=== PATIENT | female | born 1985 | race Caucasian/White ===

== ENCOUNTER → 2023-06-28 17:40 | Outpatient (REF) | payer OTHER, SELFPAY | LOC: RAD 17:40 | PROVIDERS: ATTENDING PHYSICIAN Obstetrics & Gynecology; FAMILY PHYSICIAN Family Medicine | DX: O36.80X0 Pregnancy with inconclusive fetal viability, not applicable or unspecified (principal) | CPT/HCPCS: 76801 ==

== ENCOUNTER → 2023-08-02 08:22 | Outpatient (REF) | payer BC, SELFPAY | LOC: PNTC 08:22 | PROVIDERS: ATTENDING PHYSICIAN Obstetrics & Gynecology | DX: O34.219 Maternal care for unspecified type scar from previous cesarean delivery (principal); O10.219 Pre-existing hypertensive chronic kidney disease complicating pregnancy, unspecified trimester; Z87.59 Personal history of other complications of pregnancy, childbirth and the puerperium | CPT/HCPCS: 76805; 93976 ==

== ENCOUNTER → 2023-08-29 06:45 | Outpatient (REF) | payer BC, SELFPAY | LOC: PNTC 06:45 | PROVIDERS: ATTENDING PHYSICIAN Obstetrics & Gynecology | DX: O09.529 Supervision of elderly multigravida, unspecified trimester (principal); O34.219 Maternal care for unspecified type scar from previous cesarean delivery | CPT/HCPCS: 76811 ==

== ENCOUNTER → 2023-09-27 06:56 | Outpatient (REF) | payer BC, SELFPAY | LOC: PNTC 06:56 | PROVIDERS: ATTENDING PHYSICIAN Obstetrics & Gynecology | DX: O09.529 Supervision of elderly multigravida, unspecified trimester (principal); O13.9 Gestational [pregnancy-induced] hypertension without significant proteinuria, unspecified trimester; Z87.59 Personal history of other complications of pregnancy, childbirth and the puerperium; O43.219 Placenta accreta, unspecified trimester | CPT/HCPCS: 76816; 93976 ==

== ENCOUNTER → 2023-10-25 06:58 | Outpatient (REF) | payer BC, SELFPAY | LOC: PNTC 06:58 | PROVIDERS: ATTENDING PHYSICIAN Obstetrics & Gynecology | DX: O09.529 Supervision of elderly multigravida, unspecified trimester (principal); O10.119 Pre-existing hypertensive heart disease complicating pregnancy, unspecified trimester; Z87.59 Personal history of other complications of pregnancy, childbirth and the puerperium; O43.219 Placenta accreta, unspecified trimester | CPT/HCPCS: 76816; 93976 ==

== ENCOUNTER → 2023-11-23 06:58 | Outpatient (REF) | payer BC, SELFPAY | LOC: PNTC 06:58 | PROVIDERS: ATTENDING PHYSICIAN Obstetrics & Gynecology | DX: O09.519 Supervision of elderly primigravida, unspecified trimester (principal); O10.119 Pre-existing hypertensive heart disease complicating pregnancy, unspecified trimester; O14.90 Unspecified pre-eclampsia, unspecified trimester | CPT/HCPCS: 59025; 76816 ==

== ENCOUNTER → 2023-12-06 07:03 | Outpatient (REF) | payer BC, SELFPAY | LOC: PNTC 07:03 | PROVIDERS: ATTENDING PHYSICIAN Obstetrics & Gynecology | DX: Z87.59 Personal history of other complications of pregnancy, childbirth and the puerperium (principal); O10.119 Pre-existing hypertensive heart disease complicating pregnancy, unspecified trimester; O34.219 Maternal care for unspecified type scar from previous cesarean delivery | CPT/HCPCS: 59025; 76815 ==

== ENCOUNTER → 2023-12-13 16:26 | Outpatient (REF) | payer BC, SELFPAY | LOC: PNTC 16:26 | PROVIDERS: ATTENDING PHYSICIAN Obstetrics & Gynecology | DX: O16.9 Unspecified maternal hypertension, unspecified trimester (principal); O34.219 Maternal care for unspecified type scar from previous cesarean delivery | CPT/HCPCS: 59025; 76815 ==

== ENCOUNTER → 2023-12-21 06:57 | Outpatient (REF) | payer BC, SELFPAY | LOC: PNTC 06:57 | PROVIDERS: ATTENDING PHYSICIAN Obstetrics & Gynecology | DX: O09.519 Supervision of elderly primigravida, unspecified trimester (principal); O10.119 Pre-existing hypertensive heart disease complicating pregnancy, unspecified trimester; Z87.59 Personal history of other complications of pregnancy, childbirth and the puerperium | CPT/HCPCS: 59025; 76816 ==

== ENCOUNTER → 2023-12-28 06:49 | Outpatient (REF) | payer BC, SELFPAY | LOC: PNTC 06:49 | PROVIDERS: ATTENDING PHYSICIAN Obstetrics & Gynecology | DX: O09.519 Supervision of elderly primigravida, unspecified trimester (principal); O10.119 Pre-existing hypertensive heart disease complicating pregnancy, unspecified trimester; Z87.59 Personal history of other complications of pregnancy, childbirth and the puerperium | CPT/HCPCS: 59025; 76815 ==

== ENCOUNTER 2024-01-05 08:04 | Inpatient (IN) | payer BC, SELFPAY ==
[2024-01-05 08:21] VITALS: BP 139/98; BMI 29.9
[2024-01-05 08:53] LABS: Hematocrit 34.6 % (37.0-47.0); Hemoglobin 12.6 g/dL (12.0-16.0); Mean Corp Hgb Conc. 36.4 g/dL (33.0-37.0); Mean Corpuscular Hgb 31.2 pg (27.0-31.0); Mean Corpuscular Volume 85.6 fL (81.0-99.0); Mean Platelet Volume 12.5 fL (7.4-10.4); Platelet Count 142 10^3/uL (130-400); Red Blood Cell Count 4.04 10^6/uL (4.20-5.40); White Blood Cell Count 8.2 10^3/uL (4.8-10.8)
[2024-01-05 08:56] LABS: ALT (SGPT) 15 U/L (0-35); AST (SGOT) 20 U/L (14-36); Albumin 3.5 g/dl (3.5-5.0); Alkaline Phosphatase 126 U/L (38-126); Blood Urea Nitrogen 7 mg/dl (7-17); Calcium 9.6 mg/dl (8.4-10.2); Carbon Dioxide 17 mmol/L (22-30); Chloride 105 mmol/L (98-107); Estimated Creatinine Clearance > 125 ml/min; Glucose 88 mg/dl (70-99); Potassium 4.1 mmol/L (3.5-5.1); Sodium 135 mmol/L (135-145); Total Bilirubin 0.5 mg/dl (0.2-1.3); Total Protein 6.1 g/dl (6.3-8.2); eGFR > 60.00
[2024-01-05] MEDS: LR 1000 IV (09:00)
[2024-01-05] MEDS: TYLENOL 1000 MG PO (10:06)
[2024-01-05] MEDS: BICITRA 30 ML PO (10:06)
[2024-01-05] MEDS: ANCEF 10 IV (11:19)
[2024-01-05 11:58] LABS: Cord ABG Comment CORD BLOOD
[2024-01-05 12:07] LABS: B.E. Cord ABG -3.3 mMOL/L; HCO3 Cord ABG 24.8 mmol/L; O2 Saturation % Cord ABG 34.8 %; PCO2 Cord ABG 54 mmHg; PO2 Cord ABG 21 mmHg; pH Cord ABG 7.27
[2024-01-05 12:11] LABS: B.E. Cord ABG -2.1 mMOL/L; HCO3 Cord ABG 23.7 mmol/L; O2 Saturation % Cord ABG 54.6 %; PCO2 Cord ABG 43 mmHg; PO2 Cord ABG 27 mmHg; pH Cord ABG 7.35
[2024-01-05] MEDS: TORADOL 15 MG IV ×2 (14:55→21:13)
[2024-01-05] MEDS: ZOFRAN 4 MG IV (15:09)
[2024-01-05] MEDS: TYLENOL 650 MG PO (19:39)
[2024-01-05] MEDS: PERCOCET 5/325 1 TABLET PO (23:53)
[2024-01-06] MEDS: TORADOL 15 MG IV ×2 (03:06→08:29)
[2024-01-06 05:34] LABS: Hematocrit 27.7 % (37.0-47.0); Hemoglobin 9.8 g/dL (12.0-16.0); Mean Corp Hgb Conc. 35.4 g/dL (33.0-37.0); Mean Corpuscular Hgb 30.9 pg (27.0-31.0); Mean Corpuscular Volume 87.4 fL (81.0-99.0); Mean Platelet Volume 12.5 fL (7.4-10.4); Platelet Count 118 10^3/uL (130-400); Red Blood Cell Count 3.17 10^6/uL (4.20-5.40); Red Cell Dist. Width 13.1 % (11.5-14.5); White Blood Cell Count 12.7 10^3/uL (4.8-10.8)
--- NOTE | 2024-01-06 08:01 | W.PN.ANS.POP ---
Anesthesia Post Operative
- Anesthesia Post Op Note
Vital Signs Stable-See Nursing Note: Yes
Airway Patent: Yes
Adequate Pain Control: Yes
Change in Mental Status: No
Current Postoperative Nausea & Vomiting: No
Anesthesia Complications: No
General Anesthetic Recall: No
Unplanned Admission: No
Post Op Hydration Adequate: Yes
[2024-01-06] MEDS: TYLENOL 650 MG PO (08:28)
[2024-01-06] MEDS: PRENATAL PLUS 1 TABLET PO (08:29)
[2024-01-06] MEDS: FEOSOL 325 MG PO (09:44)
[2024-01-06] MEDS: PERCOCET 5/325 1 TABLET PO ×3 (09:44→20:00)
[2024-01-06] MEDS: SENOKOT-S 1 TABLET PO (14:31)
[2024-01-06] MEDS: MOTRIN 600 MG PO ×2 (14:31→20:28)
[2024-01-06] MEDS: MYLICON 80 MG PO (14:31)
[2024-01-06] MEDS: PERCOCET 5/325 2 TABLET PO (23:52)
[2024-01-07] MEDS: PRENATAL PLUS 1 TABLET PO (08:43)
[2024-01-07] MEDS: FEOSOL 325 MG PO (08:43)
[2024-01-07] MEDS: SENOKOT-S 1 TABLET PO (08:43)
[2024-01-07] MEDS: PERCOCET 5/325 1 TABLET PO (08:44)
[2024-01-07] MEDS: MOTRIN 600 MG PO ×3 (08:44→21:34)
[2024-01-07] MEDS: TYLENOL 650 MG PO ×2 (15:13→21:34)
[2024-01-08] MEDS: MOTRIN 600 MG PO ×2 (03:38→09:54)
[2024-01-08] MEDS: TYLENOL 650 MG PO ×2 (03:38→09:54)
--- NOTE | 2024-01-08 09:46 | W.DS.TRANS ---
DC Summary - [employer]
-
Discharge Instructions:
Discharge Diagnosis/Procedures RLTCS
Instructions:
Stand-Alone Forms: LDRP Delivery
Changes to Home Medications: No
Discharge Medications:
DC Medications w/original date entered in [email or web address]
vits 96-ferrous fumarate 27 mg iron-folic acid 800 mcg tablet 1 ea PO DAILY Supplement 03/17/21
ibuprofen 600 mg tablet 600 mg PO Q6HPRN PRN cramps #90 tabs 01/08/24
Home Medication Changes
Pending Results: No
Total time spent discharging patient (in min): 20
[2024-01-08] MEDS: FEOSOL 325 MG PO (09:54)
[2024-01-08] MEDS: SENOKOT-S 1 TABLET PO (09:54)
--- NOTE | 2024-01-08 14:25 | W.DCSUMMARY ---
Discharge Summary
Discharge Data
Date of Admission: 01/05/24
Date of Discharge: 01/08/24
-
Pending Results: No
Hospital Course
Patient is a 38yo who presented at 38.6 weeks for repeat section in the setting of T. She has a history of one prior section for breech presentation and desired repeat section. RLTCS was uncomplicated and she
delivered a viable female infant weighing 6lb 11oz. POD#1 Hgb was 9.8. She was meeting all of her postoperative milestones and was discharged home on POD#3 with discharge instructions and return precautions. She was instructed to follow up in the
office in 2 weeks.
Discharge Plan
-
Patient Disposition: Home (Routine Discharge)
Discharge Diagnosis/Procedures: RLTCS
Condition: Good
Stand Alone Forms: LDRP Delivery
Referrals:
Yogi Bhagat MD [Active] - in two weeks
UNKNOWN - PT DOES,NOT KNOW [Family Provider] -
Prescriptions:
New
ibuprofen 600 mg Tablet
600 mg PO Q6HPRN PRN (Reason: cramps) Qty: 90 0RF
Continued
[id number] fum-folic 1 EACH tablet
1 ea PO DAILY
Discontinued
aspirin [Aspirin Child] 81 mg Tablet,Chewable
81 mg PO DAILY
Discharge Orders:
Discharge Patient (As Directed); Ordered 01/08/24
Ordered By: Michelle Cabral
Discharge Date and Time
Discharge Date/Time: 01/08/24 11:00
Print Language: SPANISH
[2024-01-09 15:12] LABS: Syphilis/T. pallidum Ab Reflex Negative (Negative)
== END 2024-01-08 11:00 | disposition home or self-care (01) | DRG 788 ==
LOC: LDRP 08:04
PROVIDERS: ADMITTING PHYSICIAN Obstetrics & Gynecology
PROC: 10D00Z1 Extraction of Products of Conception, Low, Open Approach (ICD-10-PCS; 2024-01-05)
DX: O16.4 Unspecified maternal hypertension, complicating childbirth (principal); O34.211 Maternal care for low transverse scar from previous cesarean delivery; N85.8 Other specified noninflammatory disorders of uterus; Z3A.38 38 weeks gestation of pregnancy; Z37.0 Single live birth; Z87.891 Personal history of nicotine dependence
CPT/HCPCS: 88307; 36415; 80053; 82803; 85027; 86780; 86850; 86900; 86901

== ENCOUNTER 2024-04-19 19:58 | Emergency (ER) | payer BC, SELFPAY ==
[2024-04-19 19:59] VITALS: BP 163/102
[2024-04-19 21:14] VITALS: BP 141/86
--- NOTE | 2024-04-19 21:49 | ED.MUSCINJ ---
HPI-Injury
General
Chief Complaint: Musculo-Skeletal Complaint
Source: patient
Exam Limitations: none
Time Seen by Provider: 04/19/24 20:33
Nursing documentation reviewed up to this point in time: agreed with
History of Present Illness-Injury
Is this injury a work related problem?: No
Is pt an associate of [facility]?: No
Initial Injury comments:
Patient states she tripped and fell. Complains of pain to right lat ankle. Injury occurred tonight
Past History
Past History
ED Past Medical History: Other
ED Past Surgical History: Other
Social History
Tobacco: Non-smoker
Review of Systems
Review of Systems
Allergies reviewed?: Yes
All Other Systems: ROS reviewed and negative except as documented in HPI and ROS
Constitutional: Reports no symptoms
Musculoskeletal: Reports joint pain (Pain to right lat ankle.)
Skin: Reports no symptoms
Neurological: Reports no symptoms
Psychiatric: Reports no symptoms
Musculoskeletal Injury Exam
Musculoskeletal Injury Exam
Right Lateral Ankle:
Pain with Movement?: Moderate
Tender to palpation?: Moderate
Soft tissue swelling?: Moderate
External deformity and angulation?: None
Joint effusion?: None
Contusion?: None
Hematoma-local bleeding into tissue?: None
Strain- Sprain- Tear (Connective tissue injury)?: Moderate
Crepitus with movement?: No
Joint instability?: No
Malalignment/deformity?: No
Range of motion: Limited
Distal skin color and temperature: normal-warm & good color
Capillary Refill: normal
Normal distal neurovascular exam?: Yes
Peripheral Pulses: posterior tibial (right): 3+ and dorsalis pedis (right): 3+
Phy Exam
General Physical Exam
General Presentation: well appearing and no apparent distress
General age: appears stated age
General Skin: warm and dry
General Habitus: normal
General Mental: alert
Musculoskeletal Exam
Musculoskeletal Exam: neuro vasc intact
Skin Exam
Skin Exam: normal color, warm/dry and no rash
Psychiatric Exam
Psychiatric Exam: normal mood/affect
Injury Course
Orders/Labs/Results
Orders:
Orders
04/19/24 20:02
CR Ankle - Right Min 3 Views * Urgent
Comment:
Reason For Exam: Injury
04/19/24 20:42
Ortho Boot Right- Treatment ONCE
Short or tall?: Tall
*Radiology
Radiology exam reviewed: radiology read reviewed
*Pulse Oximetry
Patient hypoxic: no
*Critical Care Note
Total Time (30-74mins, 75-104mins- exclusive of procedures): Not Applicable
ED Attending Note
-
Portions of this chart may have been created with voice recognition software.� Occasional wrong word or��sound alike� substitutions may have occurred due to the inherent limitations of voice recognition software.
Discharge Plan
Departure
Patient Disposition: Home (Routine Discharge)
Date of Disposition: 04/19/24
Time of Disposition: 20:45
Patient with high blood pressure during this ER visit?: No
Condition: Good
Covid-19: Not Applicable
Discharge Problem:
Ankle sprain
Instructions: Ankle sprain, Ibuprofen, Using Cold for Pain
Prescriptions:
No Action
[id number] fum-folic 1 EACH tablet
1 ea PO DAILY
ibuprofen 600 mg Tablet
600 mg PO Q6HPRN PRN (Reason: cramps) Qty: 90 0RF
Referrals:
Antonio Marcus MD [Family Provider] -
Doroteo Gomes MD [Active] - (Follow up if your symptoms do not improve over the next week.)
Interventions
Interventions:
*Risk Screen - Suicide Last Done: 04/19/24 21:14
*General Assessment Last Done: 04/19/24 21:14
*Neglect/Abuse Screening Last Done: 04/19/24 21:14
*Nursing Disposition Last Done: 04/19/24 21:18
ED-Musculoskeletal Assessment Last Done: 04/19/24 21:14
Discharge Date and Time
Discharge Date/Time: 04/19/24 21:18
Print Language: NICARAGUAN
== END 2024-04-19 21:18 | disposition home or self-care (01) ==
LOC: EMR 19:58
PROVIDERS: EMERGENCY PHYSICIAN Emergency Medicine; FAMILY PHYSICIAN Family Medicine
DX: S93.409A Sprain of unspecified ligament of unspecified ankle, initial encounter (principal); W01.0XXA Fall on same level from slipping, tripping and stumbling without subsequent striking against object, initial encounter
CPT/HCPCS: 99283; 73610

== ENCOUNTER 2024-04-26 21:52 | Inpatient (IN) | payer BC, SELFPAY ==
[2024-04-26 15:57] VITALS: BP 143/95
[2024-04-26 16:24] LABS: Urine Albumin 1+ (Neg - Trace); Urine Bilirubin 2+ (Negative); Urine Character Slightly Cloudy (Clear); Urine Color Amber; Urine Glucose Negative (Negative); Urine Ketone 2+ (Negative); Urine Leukocyte 1+ (Negative); Urine Nitrite Positive (Negative); Urine Occult Blood Negative (Negative); Urine Specific Gravity 1.025 (<1.030); Urine Urobilinogen 3+ (Neg - 1+)
[2024-04-26 16:25] LABS: % Basophils 0.6 % (0-2); % Eosinophils 1.5 % (0-6); % Immature Granulocytes 0.2 % (0-0.5); % Lymphocytes 20.4 % (20.5-51.1); % Monocytes 8.7 % (1.7-9.3); % Neutrophils 68.6 % (42.2-75.2); Absolute Eosinophils 0.1 10^3/uL (0-0.7); Absolute Lymphocytes 1.4 10^3/uL (1.2-3.4); Absolute Monocytes 0.6 10^3/uL (0.1-0.6); Absolute Neutrophils 4.6 10^3/uL (1.4-6.5); Hematocrit 40.4 % (37.0-47.0); Hemoglobin 13.9 g/dL (12.0-16.0); Mean Corp Hgb Conc. 34.4 g/dL (33.0-37.0); Mean Corpuscular Hgb 29.6 pg (27.0-31.0); Mean Corpuscular Volume 86.1 fL (81.0-99.0); Mean Platelet Volume 10.5 fL (7.4-10.4); Nucleated Red Blood Cells % 0 %; Platelet Count 229 10^3/uL (130-400); Red Blood Cell Count 4.69 10^6/uL (4.20-5.40); Red Cell Dist. Width 12.6 % (11.5-14.5); White Blood Cell Count 6.7 10^3/uL (4.8-10.8)
[2024-04-26 16:30] LABS: Urine Mucus Many; Urine Squamous Cell 26-30 /LPF (Few)
[2024-04-26 16:32] LABS: Urine Bacteria Many (Negative); Urine Red Blood Cell 0-2 /HPF (0-2); Urine White Cell 26-30 /HPF (0-5)
[2024-04-26 17:00] LABS: Albumin 4.7 g/dl (3.5-5.0); Alkaline Phosphatase 355 U/L (38-126); Blood Urea Nitrogen 14 mg/dl (7-17); Calcium 9.6 mg/dl (8.4-10.2); Carbon Dioxide 24 mmol/L (22-30); Chloride 100 mmol/L (98-107); Glucose 106 mg/dl (70-99); Potassium 3.9 mmol/L (3.5-5.1); Sodium 135 mmol/L (135-145); Total Bilirubin 3.7 mg/dl (0.2-1.3); Total Protein 7.6 g/dl (6.3-8.2); eGFR > 60.00
[2024-04-26 17:18] LABS: ALT (SGPT) 2098 U/L (0-35); AST (SGOT) 704 U/L (14-36)
--- NOTE | 2024-04-26 20:11 | ED.GENMED ---
History of Present Illness
General
Chief Complaint: Abdominal Symptoms
Source: patient
Time Seen by Provider: 04/26/24 19:53
History of Present Illness
History of Present Illness:
38-year-old female presenting to the emergency department at request of primary care provider for evaluation after she has been experiencing intermittent upper abdominal pain associate with nausea vomiting and decreased p.o. intake over the last 2
weeks but acutely worse over the last 4 days and accompanied with some constipation as well. Patient currently is 4 months currently breast-feeding but states she does not feel that this is related. Denies any history of similar.
Denies any fevers, chills, rigors, chest pain or shortness of breath, back or flank pain. She notes that while she has not had any urinary symptoms she does note her urine is darker in color than usual. Patient was at her primary care provider
today who wanted to order some labs and imaging but advised the patient if symptoms were to worsen she should come back to the emergency department to be further evaluated. Patient reports shortly after being seen by her primary care provider she
had an episode of nonbloody nonbilious emesis so decided to come to the ER for further evaluation.
Past History
Past History
ED Past Medical History: None
ED Past Surgical History:
Social History
Tobacco: Non-smoker
Alcohol: None
Drug: None
Personal:
Living: with family
Review of Systems
Review of Systems
All Other Systems: ROS reviewed and negative except as documented in HPI and ROS
Phy Exam
Physical Exam
Physical Exam:
GENERAL: Alert , in no apparent distress
EYE: clear conjunctiva b/l
HEAD: NCAT
ENT: o/p clr, mmm.
CARDIAC: Regular rate and rhythm .
LUNGS: Clear breath sounds bilaterally, no acute respiratory distress, no wheezes/rales/rhonchi
ABDOMEN: Soft, diffusely tender upper abdomen, no r/g, no cvat, negative Logan sign
NEUROLOGICAL: Alert and oriented
SKIN: Warm and dry, skin intact.
MUSCULOSKELETAL: No edema, well perfused.
PSYCH: Normal and appropriate interaction.
Scores
Heart Failure Risk
Heart Failure Risk Score: Not Applicable
Heart Score for Chest Pain Patients
STEMI patient?: Not applicable
Withdrawal Assessment of Alcohol
Withdrawal Assessment Completed?: Not applicable
Course
Orders/Labs/Results
Orders:
Orders
04/26/24 16:14
Complete Blood Count/With Diff Urgent
Comprehensive Metabolic Panel Urgent
HCG, Serum Qualitative Screen Urgent
Comment: ADD ON
Lipase Urgent
Comment: ADD ON
Urinalysis Reflex To Culture Urgent
Date Specimen was Collected: 04/26/24
Time Specimen was Collected: 16:00
Urine Microscopic Reflex Cult Urgent
Urine Culture Urgent
DONAVON Source: U
Specimen Description:
Date Specimen was Collected: 04/26/24
Time Specimen was Collected: 16:00
04/26/24 17:40
US Abdomen Complete/Upper Urgent
Comment:
Reason For Exam: upper abd pain
04/26/24 19:53
Add On- LAB Urgent
Tests Added?: lipase
Test Result ONCE
04/26/24 20:03
Add On- LAB Urgent
Tests Added?: serum hcg
04/26/24 20:10
0.9% Sodium Chloride 1000 ml [Nss] 1,000 ml IV BOLUS
Ketorolac [Toradol] 30 mg IV NOW STA
Ondansetron Injectable [Zofran] 4 mg IV NOW STA
Piperacillin/Tazo 3.375 Gram [Zosyn] 3.375 gram in 50 ml IV NOW
Abnormal Lab Results
04/26/24
16:14
MPV 10.5 H fL
(7.4-10.4)
Lymphocytes % 20.4 L %
(20.5-51.1)
Glucose 106 H mg/dl
(70-99)
Total Bilirubin 3.7 H mg/dl
(0.2-1.3)
AST 704 H* U/L
(14-36)
ALT 2098 H* U/L
(0-35)
Alkaline Phosphatase 355 H U/L
(38-126)
Urine Ketones 2+ A
(Negative)
Urine Nitrite (Reflex) Positive A
(Negative)
Urine Bilirubin 2+ A
(Negative)
Urine Urobilinogen 3+ A
(Neg - 1+)
Leukocyte Esterase Rfl 1+ A
(Negative)
Urine WBC (Reflex) 26-30 A /HPF
(0-5)
Urine Bacteria (Reflex) Many A
(Negative)
Urine Albumin (Reflex) 1+ A
(Neg - Trace)
04/26/24 16:14
04/26/24 16:14
Vital Signs
Initial and Last Documented VS:
Initial Vital Signs
Temp Pulse Resp BP Pulse Ox
98.0 F 68 20 143/95 97
04/26/24 15:57 04/26/24 15:57 04/26/24 15:57 04/26/24 15:57 04/26/24 15:57
Last Documented Vital Signs
Temp Pulse Resp BP Pulse Ox
98 F 55 14 146/91 97
04/26/24 20:23 04/26/24 20:23 04/26/24 20:23 04/26/24 20:23 04/26/24 20:23
MDM/Problems Addressed
Differential Diagnosis Includes:
GERD/gastritis, cholecystitis, dehydration, pancreatitis, gastroenteritis, UTI/pyelonephritis
MDM/Problems Addressed:
38-year-old female presenting the ER for evaluation of upper abdominal pain, persistent nausea and vomiting, decreased p.o. intake and some constipation. Seen by primary care provider earlier today, presents to the ER due to persistent and
worsening symptom. Labs initiated on arrival which show no leukocytosis however patient has significantly abnormal liver function testing including a total bilirubin of 3.7, AST of 704 and ALT of 2098. Patient's urinalysis also is nitrite positive
and 1+ leukocytes with 26-30 WBCs. Patient's ultrasound shows cholelithiasis without evidence for acute cholecystitis. Common bile duct is also dilated at 7 mm. Clinical concern for choledocholithiasis. Patient afebrile with no leukocytosis show
possibility of ascending cholangitis a little less likely. Will notify general surgery and GI with plan for hospitalist admission. Symptom control with Toradol, Zofran and fluids.
*Radiology
Radiology exam reviewed: radiology read reviewed
*Pulse Oximetry
Patient hypoxic: no
*Critical Care Note
Total Time (30-74mins, 75-104mins- exclusive of procedures): Not Applicable
Patient Management
Discussion with other providers: Hospitalist and Advisory Services Associate
Escalation/DeEscalation of care consider admission/obs:
GI will evaluate patient tomorrow with plan for MRCP, general surgery will see patient in consultation and agrees with GIs plan. Hospitalist team accepts for continued evaluation and treatment.
ED Attending Note
-
Portions of this chart may have been created with voice recognition software.� Occasional wrong word or��sound alike� substitutions may have occurred due to the inherent limitations of voice recognition software.
Discharge Plan
Departure
Patient Disposition: Admit
Date of Disposition: 04/26/24
Time of Disposition: 20:11
Presentation/result/management discussed w/ accepting MD/DO: Hospitalist
Discharge Problem:
Choledocholithiasis with obstruction
Prescriptions:
No Action
Theragen Tablet
1 tab PO DAILY
Klemme 3 Fish Oil 684-1,200 mg Capsule,Delayed Release(Dr/Ec)
1 cap PO DAILY
Vitamin
1 cap PO DAILY
Interventions
Interventions:
*Risk Screen - Suicide Last Done: 04/26/24 15:57
*General Assessment Last Done: 04/26/24 20:21
*Neglect/Abuse Screening Last Done: 04/26/24 20:21
*ED COVID-19 Vaccine History Last Done: 04/26/24 20:21
IO-Fushlz-Qpdqswuvvv Assessment Last Done: 04/26/24 20:33
Discharge Date and Time
Print Language: WOLOF
[2024-04-26 20:13] LABS: HCG, Serum Qualitative Screen Negative
[2024-04-26 20:17] LABS: Lipase 205 U/L (23-300)
[2024-04-26 20:20] VITALS: BMI 30.1
[2024-04-26 20:23] VITALS: BP 146/91
[2024-04-26] MEDS: ZOFRAN 4 MG IV (20:27)
[2024-04-26] MEDS: ZOSYN 50 IV (20:28)
[2024-04-26] MEDS: TORADOL 30 MG IV (20:28)
[2024-04-26] MEDS: NSS 1000 IV (20:33)
--- NOTE | 2024-04-26 20:38 | HPS.HSE ---
Family Physician
-
Family Physician: Antonio Marcus
Chief Complaint
-
abd pain nausea vomiting after eating , no BM x 2 weeks
History of Present Illness
38-year-old female states she has been having abdominal pain across her upper abdomen starting approximately 2 weeks ago with the worst pain on April 22. Over the past several days she has had nausea and vomiting after eating all foods but
especially fried greasy foods. She noticed over the past 2 days dark urine but denies urinary frequency, urgency, hesitancy, flank pain or suprapubic tenderness. She also complains of no bowel movement for the past 2 weeks with a normal bowel
pattern of once a week. She is passing some gas she believes but cannot recall when. She feels some slight lower abdominal bloating. She denies fever, chills, chest pain, palpitations, cough, shortness of breath. She is 4 months via
section x 2 with no other medical problems. The Patient was seen in the ED on 04/19/2024 for a right ankle sprain with significant swelling over lateral malleolus concerning for ligament injury she is currently wearing a cam boot and has
an appointment with Ortho. There is still some mild swelling to the lateral malleolus with ecchymosis below the left and right malleolus and third and fourth toe from prior edema.
Medical History
Past Medical History
Past Medical History: Reports None
Past Surgical History: Reports (x 2)
Social History
Tobacco: Non-smoker
Alcohol: None
Drug: None
Personal:
Living: With Family
Employment: Employed
Family History
Family History: Not pertinent
Allergies / Home Medications
Allergies reflects when Allergies were last updated in [facility].
Home Medications with original date entered in [facility]
Allergy/Medication List:
Allergies
Allergy/AdvReac Type Severity Reaction Status Date / Time
No Known Allergies Allergy Verified 04/19/24 19:59
Home Medications
Vitamin 1 cap PO DAILY 04/26/24
omega-3 fatty acids-fish oil 684 mg-1,200 mg capsule,delayed release 1 cap PO DAILY 04/26/24
therapeutic multivitamin 1 tab PO DAILY 04/26/24
Review of Systems
-
History Source: Patient and Family
A 12 point ROS was completed and negative except as noted: Yes
Constitutional: Denies Fever or Chills
EENT: Denies Sore Throat or Runny Nose
Respiratory: Denies Cough or Trouble Breathing
Cardiac: Denies Chest Pain, Diaphoresis, Palpitations or Syncope
Abdomen/GI: Reports Abdominal Pain (upper abd left and right ), Nausea, Vomiting and Constipated (2 weeks ); Denies Diarrhea
: Reports Dark Urine; Denies Dysuria, Frequency, Flank Pain, Incontinence, Difficulty Voiding, Urgency or Bleeding
Musculoskeletal: Reports Joint Pain (right lateral malleolus, ecchymosis left and right lateral malleolus areas including ecchymosis to 3rd and 4th toes )
Skin: Denies Itching or Rash
Neurological: Denies Dizzy, Headache or Weakness
Endocrine: Reports No Symptoms
Hematologic/Lymphatic: Reports No Symptoms
Psych: Reports Calm
Physical Exam
Vital Signs
Vital Signs
Temp Pulse Resp BP Pulse Ox
98 F 55 14 146/91 97
04/26/24 20:23 04/26/24 20:23 04/26/24 20:23 04/26/24 20:23 04/26/24 20:23
Physical Exam
General: Conversant; No Fever or Chills
HEENT: NormoCephalic, Anicteric, Moist mucous membranes, [place] Conjunctivae and No Ptosis
Respiratory: Clear; No Wheezes, Rales or Rhonchi
Cardiac: S1/S2 and Regular Rhythm; No Murmur, Rub, Gallop or Peripheral Edema
GI: Soft, Tender (across upper abd), Distended (slight lower abd ) and Other (hypoactive bowel sounds )
Genito-urinary: Deferred by me
Musculoskeletal: No Clubbing, No Cyanosis, No Edema and Other (right lateral malleolus, ecchymosis left and right lateral malleolus areas including ecchymosis to 3rd and 4th toes )
Skin: Warm and Dry; No Rash or Jaundice
Neuro: AO x 3, No Motor Deficits, Nonfocal/grossly intact, Cranial Nerves Intact and No Sensory Deficits; No Slurred Speech, Facial Droop, Tremors or Sedated
Psych: Calm
Laboratory Results
-
04/26/24 16:14
04/26/24 16:14
Laboratory Results
Total Bilirubin 3.7 mg/dl (0.2-1.3) H 04/26/24 16:14
AST 704 U/L (14-36) H* 04/26/24 16:14
ALT 2098 U/L (0-35) H* 04/26/24 16:14
Alkaline Phosphatase 355 U/L (38-126) H 04/26/24 16:14
Lipase 205 U/L (23-300) 04/26/24 16:14
Impression/Plan
-
Impression/plan:
Admit to MedSurg
#Choledocholelithiasis with acute transaminitis
Patient 4 months and is breast-feeding
ALT 2100, AST> 700, T. bili 3.7
-N.p.o.
-Consult GI
-Consult general surgery
-Check MRCP
Ultrasound abdomen complete:
1. Cholelithiasis with a mildly prominent gallbladder. Negative sonographic Logan's sign which makes acute cholecystitis less likely.
2. The common bile duct is mildly enlarged measuring 7 mm. Recommend correlation with lab values for possible biliary obstruction.
3.Mild hepatic steatosis.
Acute pyuria- asymptomatic
reports dark urine likely from T bili elevation
Positive nitrates, +3 urobilinogen, WBC 20�30 squamous epithelial 20�30, many bacteria
- follow urine culture
- pt is getting IV Zosyn for Choledocholelithiasis
# section x 2
# x 4 months and breast-feeding but supplementing
#Right ankle sprain recent 1 week
- pt in cam boot, advised to use figure 8 ankle stirrup splint until her ortho follow up
DVT prophylaxis
SCDs
Full code
--- NOTE | 2024-04-26 21:58 | W.PN.UPDATE ---
Update Note
Progress Note Update
This is an addendum to the H&P written by Maile Pablo on 04/26/2024. Patient seen and examined independently with INSTRUMENTAL MUSICIAN.
38-year-old female 4 months past medical history of presenting with nausea and vomiting for the past 2 weeks. Abdominal ultrasound shows cholelithiasis with mildly prominent gallbladder. Negative sonographic Logan sign. Common bile
duct mildly enlarged measuring 7 mm.
Patient also with constipation. Normally goes every week. No bowel movement 2 weeks.
Labs show significant transaminitis, hyperbilirubinemia. Presentation consistent with choledocholithiasis.
N.p.o., IV fluids, Zosyn, MRCP, GI consulted. General surgery consulted for eventual cholecystectomy.
Checking abdominal x-ray to rule out obstruction. Can start MiraLAX afterwards.
[2024-04-26] MEDS: MIRALAX 17 GRAMS PO (22:15)
[2024-04-27] VITALS: BP 135/75
[2024-04-27] MEDS: TUMS CHEWABLE TABLET 200 MG PO (00:15)
[2024-04-27] MEDS: NSS 1000 IV ×3 (00:18→22:41)
[2024-04-27 00:43] VITALS: BMI 29.9
[2024-04-27] MEDS: ZOSYN 50 IV ×4 (02:20→20:38)
[2024-04-27 06:06] LABS: % Basophils 0.8 % (0-2); % Eosinophils 3.3 % (0-6); % Immature Granulocytes 0.3 % (0-0.5); % Lymphocytes 39.3 % (20.5-51.1); % Monocytes 11.8 % (1.7-9.3); % Neutrophils 44.5 % (42.2-75.2); Absolute Eosinophils 0.1 10^3/uL (0-0.7); Absolute Lymphocytes 1.4 10^3/uL (1.2-3.4); Absolute Monocytes 0.4 10^3/uL (0.1-0.6); Absolute Neutrophils 1.6 10^3/uL (1.4-6.5); Hematocrit 36.7 % (37.0-47.0); Hemoglobin 12.1 g/dL (12.0-16.0); Mean Corpuscular Hgb 28.9 pg (27.0-31.0); Mean Corpuscular Volume 87.8 fL (81.0-99.0); Mean Platelet Volume 10.2 fL (7.4-10.4); Nucleated Red Blood Cells % 0 %; Platelet Count 208 10^3/uL (130-400); Red Blood Cell Count 4.18 10^6/uL (4.20-5.40); Red Cell Dist. Width 12.6 % (11.5-14.5); White Blood Cell Count 3.6 10^3/uL (4.8-10.8)
[2024-04-27 06:30] LABS: AST (SGOT) 383 U/L (14-36); Albumin 3.7 g/dl (3.5-5.0); Alkaline Phosphatase 272 U/L (38-126); Blood Urea Nitrogen 10 mg/dl (7-17); Calcium 8.8 mg/dl (8.4-10.2); Carbon Dioxide 22 mmol/L (22-30); Chloride 106 mmol/L (98-107); Estimated Creatinine Clearance > 125 ml/min; Glucose 88 mg/dl (70-99); HDL Cholesterol 86 mg/dl; LDL Cholesterol, Calculated 108 mg/dl; Potassium 4.1 mmol/L (3.5-5.1); Sodium 138 mmol/L (135-145); Total Bilirubin 1.6 mg/dl (0.2-1.3); Total Cholesterol 211 mg/dl (50-199); Total Protein 6.3 g/dl (6.3-8.2); Triglyceride 87 mg/dl (10-149); Very Low Density Lipoprotein 17 mg/dl (0-30); eGFR > 60.00
[2024-04-27 06:44] LABS: ALT (SGPT) 1508 U/L (0-35)
[2024-04-27] MEDS: NSS (PRESERVATIVE FREE) 10 ML IV (08:21)
[2024-04-27] MEDS: PROTONIX IV 40 MG IV (08:22)
[2024-04-27 08:25] VITALS: BP 113/61
[2024-04-27] MEDS: MIRALAX PO (08:55)
--- NOTE | 2024-04-27 09:28 | W.PN.HOSP.TC ---
Today's Communication/Plan
-
MRCP
apprec surgery
await GI
cont zosyn
Assessment / Plan
Assessment / Plan
pt is a 38 year old female
Choledocholithiasis with acute transaminitis--Patient 4 months and is breast-feeding--LFTs still elevated but improving--apprec surgery input--await MRCP and GI--NPO--cont zosyn
Acute pyuria- asymptomatic--reports dark urine --likely from T bili elevation--Positive nitrates, +3 urobilinogen, WBC 20�30 squamous epithelial , many bacteria-- follow urine culture- pt is getting IV Zosyn
section x 2-- x 4 months and breast-feeding but supplementing
Right ankle sprain recent 1 week- pt in cam boot, advised to use figure 8 ankle stirrup splint until her ortho follow up
DVT prophylaxis--SCDs
code status --Full code
Anticipated Discharge: > 48 hours
Subjective/Interval History
-
Date of Service: April 27, 2024
pt feeling better
Objective Data
-
Labs:
Laboratory Results
04/27/24
05:46
WBC 3.6 L
Hgb 12.1
Hct 36.7 L
Plt Count 208
Sodium 138
Potassium 4.1
Chloride 106
Carbon Dioxide 22
BUN 10
Creatinine 0.7
Glucose 88
Calcium 8.8
Total Bilirubin 1.6 H D
AST 383 H
ALT 1508 H*
Alkaline Phosphatase 272 H
Vital Signs:
max temp for 24 hours
04/26/24
20:23
Temp 98 F
Vital Signs
Temp Pulse Resp BP Pulse Ox
97.5 F 60 18 113/61 96
04/27/24 08:25 04/27/24 08:25 04/27/24 08:25 04/27/24 08:25 04/27/24 08:25
Review of Systems
-
All other systems: Reviewed and negative
Physical Exam
-
General: Well Developed, Well Nourished and No Apparent Distress
HEENT: Normocephalic and Atraumatic; Negative Oxygen
Respiratory: Clear to Auscultation; Negative Wheezes or Rhonchi
Cardiac: Regular Rhythm and S1/S2; Negative Murmur
GI: Soft, Nontender, Nondistended and Normal Bowel Sounds
Musculoskeletal: No Clubbing, No Cyanosis and No Edema
Neuro: Awake and Alert
Psych: Calm
--- NOTE | 2024-04-27 09:29 | PTCARENOTE ---
: Visited with Edelmira who delivered in December and is doing a combination of and pumping. Reviewed hospital pump, proper cleaning, and milk storage guidelines. Encouraged her to pump q3 hours to maintain milk supply and to
keep ebm on ice for family member to take home within 24 hours.
--- NOTE | 2024-04-27 10:14 | CON.GS ---
Addendum entered and electronically signed by Nikita Arce MD 04/27/24 11:25:
I saw and examined the patient independently.
The Supervisor Wound's note was reviewed and I agree with the note, assessment and plan except where noted below.
Comment: This is a 38-year-old female who presents with 2 weeks of postprandial right upper quadrant pain that worsened about 5 days ago over the past 2 days she has noticed dark-colored urine. She presented to our hospital and was found to have a
elevated bilirubinemia and LFTs as well as gallstones on ultrasound with dilation of the CBD. Of note her bilirubin has fallen to 1.6 today and feels clinically better.
This likely represents her choledocholithiasis, as her bilirubin is fallen temporally the stone has passed as well. Would get an MRI to confirm. If there is a stone still present recommend GI consult for possible ERCP. If the stone has passed
recommend laparoscopic cholecystectomy to prevent recurrence. I did discuss this briefly with the patient as well as typical surgical course, postop course recovery as well as risk benefits and alternatives.
Continue n.p.o. for now, IV fluids, IV antibiotics per primary.
General surgery will continue to follow
I spent 60 minutes in total for the care of this patient today including direct patient care and counseling, reviewing labs, imaging, coordination of care, as well as documentation.
Original Note:
Consultation
-
Date/Time Consultation Requested: 04/26/242127
Requesting Provider: Samy
Reason for Consultation: choledocholelithiasis with cbd dilation
Medical History
-
Chief Complaint: Abdominal pain
History of Present Illness:
Ms Amaro is a 38 yo female who is and approximately 3-4 months post () who notes upper abdominal pain over the past 2 weeks after heavy meals. The pain began to worsen about 5 days ago and become more persistent with
nausea and vomiting noted after higher fat meals. Over the past 2 days, she noticed dark urine. She also complains of constipation and has not had a BM for 2 weeks although she notes her baseline is a weekly BM. She denies fevers or chills.
Past Medical History
Past Medical History: Psychiatric (ADHD) and Other (Recent right ankle injury)
Past Surgical History: (x2)
Social History
Tobacco: Non-Smoker
Alcohol: None
Living: With Family
Family History
Family History: Reviewed & Not Pertinent
Allergies / Home Medications
Allergy/AdvReac Type Severity Reaction Status Date / Time
No Known Allergies Allergy Verified 04/19/24 19:59
�Medication �Instructions �Recorded �Confirmed �Type
Vitamin 1 cap PO DAILY 04/26/24 04/26/24 History
omega-3 fatty acids-fish oil 684 1 cap PO DAILY 04/26/24 04/26/24 History
mg-1,200 mg capsule,delayed release
therapeutic multivitamin 1 tab PO DAILY 04/26/24 04/26/24 History
Review of Systems
-
History Source: Patient
All other systems: Negative unless noted
A 10 point review of systems was completed, and was negative except as per HPI.
Physical Exam
Vital Signs
Temp Pulse Resp BP Pulse Ox
97.5 F 60 18 113/61 96
04/27/24 08:25 04/27/24 08:25 04/27/24 08:25 04/27/24 08:25 04/27/24 08:25
04/26/24 04/27/24 04/28/24
06:59 06:59 06:59
Actual Weight 86.636 kg
Body Mass Index (BMI) 29.9
Lab Results
04/27/24 05:46
04/27/24 05:46
WBC 3.6 10^3/uL (4.8-10.8) L 04/27/24 05:46
Hgb 12.1 g/dL (12.0-16.0) 04/27/24 05:46
Hct 36.7 % (37.0-47.0) L 04/27/24 05:46
Plt Count 208 10^3/uL (130-400) 04/27/24 05:46
Abs Immat Gran (auto) 0.0 10^3/uL (0-0.05) 04/27/24 05:46
Neutrophils % 44.5 % (42.2-75.2) 04/27/24 05:46
Physical Exam
General: Well Developed and No Apparent Distress
HEENT: Normocephalic and Moist Mucous Membranes
Respiratory: Non Labored Respirations
GI: Soft, Non Distended and Tender (upper abdomen)
Skin: Warm and Dry
Neuro: Awake, Alert and AO x 3
Psych: Calm
Assessment / Plan
-
38 yo female with recent on 01/05/24 (currently lactating) presenting with 2 weeks of biliary colic after fatty meals with recent worsening over the last few days and becoming persistent with dark urine. US with cholelithiasis, neg maurer's
sign and no inflammation that would suggest cholecystitis but concern for biliary obstruction with marked transaminitis and elevated bilirubin of 3.7 although trending down on repeat labs this am. Lipase WNL. ?passage of stone. No leukocytosis.
+constipation. UA abnormal, awaiting cx. Afebrile with stable vital signs.
--MRCP pending to determine if choledocholithiasis present
--NPO for testing
--GI consulted as she may require ERCP pending MRCP findings
--ABX as per primary team
--Continue bowel regimen
--Would recommend eventual cholecystectomy, ideally this admission. Timing TBD pending GI work up and patient preference.
--- NOTE | 2024-04-27 13:14 | CM ---
CM met with patient and fiance in room. Confirmed demographics. Patient does not have a history of VN, SNF or DME. Patient is active with her PCP. Patient uses [facility] in [place].
PLAN: home no needs.
--- NOTE | 2024-04-27 14:06 | CON.GI ---
Consultation
-
Date/Time Consultation Requested: 04/26/2024
Date/Time Consultation Performed: 04/27/2024
Requesting Provider: Hospitalist
Performing Provider: Suresh PARKER
Reason for Consultation: abdominal pain/ elevated liver test - concern for CBD stone
Medical History
Chief Complaint / HPI
Chief Complaint: Abdominal pain/nausea/vomiting
History of Present Illness:
38-year-old female with no significant past medical history admitted to ED complaining of abdominal pain/nausea/vomiting for 2 weeks. Symptoms exacerbated by fatty meals. She also noticed her urine was turning dark for the last 2 days as well.
She is 4 months via section. Denies any fevers or chills.
Past Medical History
Past Medical History: None
Past Surgical History:
Social History
Tobacco: Non-Smoker
Alcohol: None
Allergies / Home Medications
Allergy/AdvReac Type Severity Reaction Status Date / Time
No Known Allergies Allergy Verified 04/19/24 19:59
�Medication �Instructions �Recorded
Vitamin 1 cap PO DAILY 04/26/24
omega-3 fatty acids-fish oil 684 1 cap PO DAILY 04/26/24
mg-1,200 mg capsule,delayed release
therapeutic multivitamin 1 tab PO DAILY 04/26/24
Review of Systems
-
All other systems: A 12 pt ROS was Negative except as stated above in HPI
Vital Signs
Temp Pulse Resp BP Pulse Ox
97.5 F 60 18 113/61 96
04/27/24 08:25 04/27/24 08:25 04/27/24 08:25 04/27/24 08:25 04/27/24 08:25
Physical Exam
Exam
General: Well Developed and No Apparent Distress
Respiratory: Clear
GI: Soft, Non Tender and Non Distended
Neuro: AO x 3
Results
WBC 3.6 10^3/uL (4.8-10.8) L 04/27/24 05:46
Hgb 12.1 g/dL (12.0-16.0) 04/27/24 05:46
Hct 36.7 % (37.0-47.0) L 04/27/24 05:46
MCV 87.8 fL (81.0-99.0) 04/27/24 05:46
Plt Count 208 10^3/uL (130-400) 04/27/24 05:46
Absolute Neuts (auto) 1.6 10^3/uL (1.4-6.5) 04/27/24 05:46
Sodium 138 mmol/L (135-145) 04/27/24 05:46
Potassium 4.1 mmol/L (3.5-5.1) 04/27/24 05:46
Chloride 106 mmol/L (98-107) 04/27/24 05:46
Carbon Dioxide 22 mmol/L (22-30) 04/27/24 05:46
BUN 10 mg/dl (7-17) 04/27/24 05:46
Creatinine 0.7 mg/dL (0.6-1.0) 04/27/24 05:46
Calcium 8.8 mg/dl (8.4-10.2) 04/27/24 05:46
Total Bilirubin 1.6 mg/dl (0.2-1.3) H D 04/27/24 05:46
AST 383 U/L (14-36) H 04/27/24 05:46
ALT 1508 U/L (0-35) H* 04/27/24 05:46
Alkaline Phosphatase 272 U/L (38-126) H 04/27/24 05:46
Lipase 205 U/L (23-300) 04/26/24 16:14
Diagnostic Image Results:
US abd 04/26/2024
IMPRESSION:
Cholelithiasis with a mildly prominent gallbladder. Negative sonographic Logan's sign which makes acute cholecystitis less likely.
The common bile duct is mildly enlarged measuring 7 mm. Recommend correlation with lab values for possible biliary obstruction.
Mild hepatic steatosis.
Prior GI Procedures:
EGD: none
Colonoscopy: none
Assessment / Plan
-
38-year-old female 4 months is admitted with abdominal pain/nausea/vomiting for 2 weeks. On admission noted to have elevated liver test-AST 704/ALT 2098/alkaline phosphatase 355/total bilirubin 3.7. No leukocytosis. Clinically feeling
better today. Repeat labs this a.m. AST 383/ALT 1508/alkaline phosphatase 272/total bilirubin 1.6. MRCP�no evidence of choledocholithiasis. Common bile duct is slightly decreased in size from prior ultrasound and now measures 5 mm. Cholelithiasis.
-- Abdominal pain/nausea/vomiting/elevated liver test-likely passed CBD stone.
--Cholelithiasis
-- -4 months
plan
No role of ERCP at this point
continue Trend LFT. will add hepatitis panel
Continue follow-up with surgical recommendation-lap cholecystectomy
Call us back if any questions. will s/o
Total Time Spent with Patient (in minutes): 55
-
-
Thank you for consultation and allowing me to participate in the patient's care. Please call the construction tech GI physician during the after hours with any questions or concerns.
[2024-04-27 15:35] VITALS: BP 103/64
--- NOTE | 2024-04-27 17:27 | W.PN.SURGUPD ---
Surgical Update
Surgical Update
S: Patient seen and examined at bedside with Dr. Arce. No active pain. Tolerating liquids
B: Reviewed MRI results with patient and family; no choledocholithiasis or cholecystitis. Multiple gallstones present. Given exam, labs, clinical picture, suspect she passed a gallstone with biliary colic symptoms over the past few weeks.
A: Questions addressed regarding cholecystectomy for prevention of future episodes and risks of recurrence. Patient and spouse trying to determine timing of surgery as they have an and if they want to proceed with surgery at all.
P: Will start low fat diet. OK to d/c to home from surgical perspective if tolerating diet. Recommend outpatient surgical follow up for further discussion of cholecystectomy/surveilance
[2024-04-27 23:10] VITALS: BP 129/73
[2024-04-28] MEDS: ZOSYN 50 IV ×2 (01:34→08:09)
[2024-04-28] MEDS: NSS 1000 IV (06:30)
[2024-04-28 06:35] LABS: % Basophils 0.7 % (0-2); % Eosinophils 3.7 % (0-6); % Immature Granulocytes 0.5 % (0-0.5); % Lymphocytes 39.3 % (20.5-51.1); % Monocytes 9.3 % (1.7-9.3); % Neutrophils 46.5 % (42.2-75.2); Absolute Eosinophils 0.2 10^3/uL (0-0.7); Absolute Lymphocytes 1.7 10^3/uL (1.2-3.4); Absolute Monocytes 0.4 10^3/uL (0.1-0.6); Hematocrit 35.3 % (37.0-47.0); Hemoglobin 11.9 g/dL (12.0-16.0); Mean Corp Hgb Conc. 33.7 g/dL (33.0-37.0); Mean Corpuscular Hgb 29.2 pg (27.0-31.0); Mean Corpuscular Volume 86.7 fL (81.0-99.0); Mean Platelet Volume 10.7 fL (7.4-10.4); Nucleated Red Blood Cells % 0 %; Platelet Count 199 10^3/uL (130-400); Red Blood Cell Count 4.07 10^6/uL (4.20-5.40); Red Cell Dist. Width 12.6 % (11.5-14.5); White Blood Cell Count 4.3 10^3/uL (4.8-10.8)
[2024-04-28 06:57] LABS: AST (SGOT) 142 U/L (14-36); Albumin 3.6 g/dl (3.5-5.0); Alkaline Phosphatase 234 U/L (38-126); Blood Urea Nitrogen 13 mg/dl (7-17); Calcium 8.6 mg/dl (8.4-10.2); Carbon Dioxide 21 mmol/L (22-30); Chloride 105 mmol/L (98-107); Estimated Creatinine Clearance > 125 ml/min; Glucose 93 mg/dl (70-99); Potassium 3.9 mmol/L (3.5-5.1); Sodium 137 mmol/L (135-145); Total Protein 6.2 g/dl (6.3-8.2); eGFR > 60.00
[2024-04-28 07:09] LABS: ALT (SGPT) 1100 U/L (0-35)
[2024-04-28 07:30] VITALS: BP 124/88
--- NOTE | 2024-04-28 07:30 | W.PN.HOSP.TC ---
Today's Communication/Plan
-
d/c
Assessment / Plan
Assessment / Plan
pt is a 38 year old female
cleared for d/c
Choledocholithiasis with acute transaminitis--Patient 4 months and is breast-feeding--LFTs still elevated but improving--apprec surgery/GI input--MRCP without stones seen and GI--tolerated low fat diet--stop zosyn
Acute pyuria- asymptomatic--reports dark urine --likely from T bili elevation--Positive nitrates, +3 urobilinogen, WBC 20�30 squamous epithelial , many bacteria-- follow urine culture- pt is getting IV Zosyn
section x 2-- x 4 months and breast-feeding but supplementing
Right ankle sprain recent 1 week- pt in cam boot, advised to use figure 8 ankle stirrup splint until her ortho follow up
DVT prophylaxis--SCDs
code status --Full code
Anticipated Discharge: Today
Subjective/Interval History
-
Date of Service: April 28, 2024
pt ready for d/c
Objective Data
-
Labs:
Laboratory Results
04/28/24
06:05
WBC 4.3 L
Hgb 11.9 L
Hct 35.3 L
Plt Count 199
Sodium 137
Potassium 3.9
Chloride 105
Carbon Dioxide 21 L
BUN 13
Creatinine 0.7
Glucose 93
Calcium 8.6
Total Bilirubin 1.0
AST 142 H
ALT 1100 H*
Alkaline Phosphatase 234 H
Vital Signs:
max temp for 24 hours
04/27/24
15:35
Temp 98.4 F
Vital Signs
Temp Pulse Resp BP Pulse Ox
98.3 F 68 18 129/73 99
04/27/24 23:10 04/27/24 23:10 04/27/24 23:10 04/27/24 23:10 04/27/24 23:10
I&O
04/27/24 04/28/24 04/29/24
06:59 06:59 06:59
Intake Total 1100 / 1100
Balance 1100 / 1100
Review of Systems
-
All other systems: Reviewed and negative
Physical Exam
-
General: Well Developed, Well Nourished and No Apparent Distress
HEENT: Normocephalic and Atraumatic
Respiratory: Clear to Auscultation; Negative Wheezes or Rhonchi
Cardiac: Regular Rhythm and S1/S2; Negative Murmur
GI: Soft, Nontender, Nondistended and Normal Bowel Sounds
Musculoskeletal: No Clubbing, No Cyanosis and No Edema
Neuro: Awake and Alert
Psych: Calm
[2024-04-28] MEDS: NSS (PRESERVATIVE FREE) 10 ML IV (08:08)
[2024-04-28] MEDS: MIRALAX 17 GRAMS PO (08:09)
[2024-04-28] MEDS: PROTONIX IV 40 MG IV (08:09)
[2024-04-28] MEDS: FLUSH (NSS) 2 FLUSH IV (08:10)
--- NOTE | 2024-04-28 09:30 | CM ---
MD entered order for discharge.
Pt declined VN .
PLAN Home no needs
--- NOTE | 2024-04-28 13:56 | W.DCSUMMARY ---
Discharge Summary
Discharge Data
Date of Admission: 04/26/24
Date of Discharge: 04/28/24
-
Pending Results: No
Hospital Course
Primary care physician : Antonio Marcus
Principal Discharge diagnosis : Choledocholithiasis with acute transaminitis
Chronic Discharge diagnosis : x 4 months with breast-feeding, right ankle sprain
Hospital Course : Patient was a 38-year-old female who is 4 months and breast-feeding is started having abdominal pain across her upper abdomen 2 weeks prior to admission with the worst pain in April 22. She had nausea, vomiting,
after eating all kinds of foods especially fried greasy foods. She noticed over the 2 days prior to admission her urine was dark but denied any urinary frequency, urgency, hesitancy, flank pain, or suprapubic tenderness. Her normal bowel movement
pattern is once per week. She feels slight lower abdominal bloating. She denied fever, chills, chest pain, palpitations, cough, or shortness of breath. Patient was admitted.
Problem #1: Choledocholithiasis with acute transaminitis. Patient was admitted and seen in consultation by both GI and surgery. LFTs were elevated but improving. MRCP did not show any stones in the duct work. This was likely a passed gallstone.
She tolerated her low-fat diet. She was started on Zosyn but will not be discharged on that. She is stable for discharge at this time. Patient declined surgical intervention for her cholelithiasis despite being informed that this could recur.
Problem #2: All other medical issues. These include x 4 months with breast-feeding, right ankle sprain. These medical issues were stable during her hospitalization. Medications were continued as able. She continued to breast-feed.
Patient is stable for discharge home at this time. If there are any questions regarding this dictation or her hospital stay, please of this day to call. Our office number is [phone].
Important imaging findings :
ABDOMINAL MRI IMPRESSION:
There is no evidence of choledocholithiasis. The common bile duct has slightly decreased in size from prior ultrasound and now measures 5 mm, previously 7 mm. . Findings may represent recently passed stone.
Cholelithiasis.
Discharge Plan
-
Patient Disposition: Home (Routine Discharge)
Discharge Diagnosis/Procedures: Choledocholithiasis with acute transaminitis, Asymptomatic Acute pyuria, x 4 months, Right ankle sprain recent 1 week
Condition: Good
Diet: Low Fat
Activity: As tolerated
Driving Restrictions: As prior to admission
Bathing Restrictions: None
Referrals:
Antonio Marcus MD [Family Provider] - in less than 1 week
Nikita Arce MD [Active] - in one to two weeks
Prescriptions:
Continued
therapeutic multivitamin Tablet
1 tab PO DAILY
omega-3 fatty acids-fish oil 684-1,200 mg Capsule,Delayed Release(Dr/Ec)
1 cap PO DAILY
Vitamin
1 cap PO DAILY
Discharge Orders:
Discharge Patient (As Directed); Ordered 04/28/24
Ordered By: Corin Vega
Discharge Date and Time
Discharge Date/Time: 04/28/24 09:11
Print Language: THAI
[2024-04-29 18:48] LABS: Hepatitis B Surface Antigen Negative (Negative)
[2024-04-29 19:05] LABS: Hepatitis B Surface Antibody Positive; Hepatitis C Antibody Negative (Negative)
[2024-04-29 19:52] LABS: Hepatitis A IgM Antibody Negative (Negative)
[2024-04-29 20:38] LABS: Hepatitis B Core Ab, IgM Negative (Negative)
== END 2024-04-28 09:11 | disposition home or self-care (01) | DRG 446 ==
LOC: 3 WEST ACU 21:52
PROVIDERS: Clinical Nurse Specialist Family Health; Emergency Medicine; ADMITTING PHYSICIAN Hospitalist; ATTENDING PHYSICIAN Internal Medicine; CONSULT PHYSICIAN Surgery; EMERGENCY PHYSICIAN Emergency Medicine; FAMILY PHYSICIAN Family Medicine; OTHER PHYSICIAN Internal Medicine Gastroenterology
DX: K80.71 Calculus of gallbladder and bile duct without cholecystitis with obstruction (principal); K76.0 Fatty (change of) liver, not elsewhere classified
CPT/HCPCS: 74018; 74181; 76700; 80053; 80061; 81003; 81015; 83690; 84703; 85025; 86705; 86706; 86709; 86803; 87086; 87340; 96361; 96365; 96375; 99285

== ENCOUNTER 2024-05-16 23:47 | Inpatient (IN) | payer BC, SELFPAY ==
[2024-05-16 18:41] VITALS: BP 129/85
[2024-05-16 19:11] LABS: % Basophils 0.4 % (0-2); % Eosinophils 1.1 % (0-6); % Immature Granulocytes 0.1 % (0-0.5); % Lymphocytes 17.4 % (20.5-51.1); % Monocytes 7.6 % (1.7-9.3); % Neutrophils 73.4 % (42.2-75.2); Absolute Eosinophils 0.1 10^3/uL (0-0.7); Absolute Lymphocytes 1.4 10^3/uL (1.2-3.4); Absolute Monocytes 0.6 10^3/uL (0.1-0.6); Absolute Neutrophils 5.8 10^3/uL (1.4-6.5); Hematocrit 39.5 % (37.0-47.0); Hemoglobin 13.5 g/dL (12.0-16.0); Mean Corp Hgb Conc. 34.2 g/dL (33.0-37.0); Mean Corpuscular Hgb 29.5 pg (27.0-31.0); Mean Corpuscular Volume 86.4 fL (81.0-99.0); Mean Platelet Volume 11.3 fL (7.4-10.4); Nucleated Red Blood Cells % 0 %; Platelet Count 201 10^3/uL (130-400); Red Blood Cell Count 4.57 10^6/uL (4.20-5.40); Red Cell Dist. Width 12.1 % (11.5-14.5); White Blood Cell Count 7.9 10^3/uL (4.8-10.8)
[2024-05-16 19:12] LABS: Urine Albumin Trace (Neg - Trace); Urine Bilirubin Negative (Negative); Urine Character Clear (Clear); Urine Color Yellow; Urine Glucose Negative (Negative); Urine Ketone Negative (Negative); Urine Leukocyte Trace (Negative); Urine Nitrite Negative (Negative); Urine Occult Blood Negative (Negative); Urine Urobilinogen Negative (Neg - 1+)
[2024-05-16 19:22] LABS: Urine Red Blood Cell 0-2 /HPF (0-2)
[2024-05-16 19:23] LABS: Urine Bacteria Few (Negative)
[2024-05-16 19:29] LABS: ALT (SGPT) 176 U/L (0-35); AST (SGOT) 247 U/L (14-36); Albumin 4.5 g/dl (3.5-5.0); Alkaline Phosphatase 123 U/L (38-126); Blood Urea Nitrogen 27 mg/dl (7-17); Calcium 9.5 mg/dl (8.4-10.2); Carbon Dioxide 30 mmol/L (22-30); Chloride 101 mmol/L (98-107); Glucose 97 mg/dl (70-99); HCG, Serum Qualitative Screen Negative; Lipase 104 U/L (23-300); Potassium 3.7 mmol/L (3.5-5.1); Sodium 140 mmol/L (135-145); Total Protein 7.2 g/dl (6.3-8.2); eGFR > 60.00
--- NOTE | 2024-05-16 22:56 | ED.GENMED ---
History of Present Illness
General
Chief Complaint: Abdominal Symptoms
Source: patient
Time Seen by Provider: 05/16/24 22:39
History of Present Illness
History of Present Illness:
38-year-old female with recent diagnosis and admission to this facility for choledocholithiasis with acute transaminitis presenting back to the emergency department for evaluation of right upper quadrant abdominal pain with nausea and vomiting that
began acutely this evening and persists. During admission patient was offered laparoscopic cholecystectomy but declined and instead opted to follow-up as an outpatient. Patient saw her surgical team yesterday with plans for continued outpatient
management and eventual laparoscopic cholecystectomy. Tonight due to the persistent pain and vomiting decided to come back to the emergency department. Denies any fevers, chills, rigors. Did not take anything for pain or nausea prior to arrival
Past History
Past History
ED Past Medical History: Other (Gallstones)
ED Past Surgical History:
Social History
Tobacco: Non-smoker
Alcohol: None
Drug: None
Personal:
Living: with family
Review of Systems
Review of Systems
All Other Systems: ROS reviewed and negative except as documented in HPI and ROS
Phy Exam
Physical Exam
Physical Exam:
GENERAL: Alert , in no apparent distress
EYE: clear conjunctiva b/l
HEAD: NCAT
ENT: o/p clr, mmm.
CARDIAC: Regular rate and rhythm .
LUNGS: Clear breath sounds bilaterally, no acute respiratory distress, no wheezes/rales/rhonchi
ABDOMEN: Soft, mild to moderate right upper quadrant tenderness, no r/g, no cvat
NEUROLOGICAL: Alert and oriented
SKIN: Warm and dry, skin intact.
MUSCULOSKELETAL: No edema, well perfused.
PSYCH: Normal and appropriate interaction.
Scores
Heart Failure Risk
Heart Failure Risk Score: Not Applicable
Heart Score for Chest Pain Patients
STEMI patient?: Not applicable
Withdrawal Assessment of Alcohol
Withdrawal Assessment Completed?: Not applicable
Course
Orders/Labs/Results
Orders:
Orders
05/16/24 18:46
Test Result ONCE
05/16/24 19:01
Urinalysis Reflex To Culture Urgent
Date Specimen was Collected: 05/16/24
Time Specimen was Collected: 18:46
Urine Microscopic Reflex Cult Urgent
05/16/24 19:04
Complete Blood Count/With Diff Urgent
05/16/24 19:05
Comprehensive Metabolic Panel Urgent
HCG, Serum Qualitative Screen Urgent
Lipase Urgent
05/16/24 22:59
Piperacillin/Tazo 3.375 Gram [Zosyn] 3.375 gram in 50 ml IV NOW
05/16/24 23:00
0.9% Sodium Chloride 1000 ml [Nss] 1,000 ml IV BOLUS
HYDROmorphone [Dilaudid] 1 mg IV NOW STA
Ondansetron Injectable [Zofran] 4 mg IV NOW STA
Abnormal Lab Results
05/16/24 05/16/24 05/16/24
19:01 19:04 19:05
MPV 11.3 H fL
(7.4-10.4)
Lymphocytes % 17.4 L %
(20.5-51.1)
BUN 27 H mg/dl
(7-17)
AST 247 H U/L
(14-36)
ALT 176 H U/L
(0-35)
Leukocyte Esterase Rfl Trace A
(Negative)
Urine Bacteria (Reflex) Few A
(Negative)
05/16/24 19:04
05/16/24 19:05
Vital Signs
Initial and Last Documented VS:
Initial Vital Signs
Temp Pulse Resp BP Pulse Ox
97.8 F 74 18 129/85 99
05/16/24 18:41 05/16/24 18:41 05/16/24 18:41 05/16/24 18:41 05/16/24 18:41
Last Documented Vital Signs
Temp Pulse Resp BP Pulse Ox
97.8 F 65 18 100/62 97
05/16/24 18:41 05/16/24 23:40 05/16/24 18:41 05/16/24 23:29 05/16/24 23:34
MDM/Problems Addressed
Differential Diagnosis Includes:
Cholecystitis, symptomatic cholelithiasis, no fevers to suggest a ascending cholangitis
MDM/Problems Addressed:
38-year-old female with known gallstones presenting back to the emergency department for worsening right upper quadrant abdominal pain, nausea and vomiting. Known history of gallstones with recent admission for choledocholithiasis with
transaminitis. Labs ordered in triage show improved LFTs. There is no leukocytosis and she is afebrile. Will discuss case with surgery with suspected plans for admission with surgical evaluation in the a.m. and possible laparoscopic
cholecystectomy.
*Pulse Oximetry
Patient hypoxic: no
*Critical Care Note
Total Time (30-74mins, 75-104mins- exclusive of procedures): Not Applicable
Data Reviewed
Review of Other/Old Records Reveals: Labs, Records and Discharge Summary
Source: patient and records
Patient Management
Discussion with other providers: Hospitalist and Lawn Service Manager
Escalation/DeEscalation of care consider admission/obs:
Notify general surgery who states okay to proceed without ultrasound as we already know the complication. They will see the patient in the a.m. Will keep n.p.o. after midnight in case opting for surgery. Zosyn ordered. Dilaudid and Zofran
ordered for symptomatic relief. House provider to place admissions for surgery team.
ED Attending Note
-
Portions of this chart may have been created with voice recognition software.� Occasional wrong word or��sound alike� substitutions may have occurred due to the inherent limitations of voice recognition software.
Discharge Plan
Departure
Patient Disposition: Admit
Date of Disposition: 05/16/24
Time of Disposition: 22:56
Presentation/result/management discussed w/ accepting MD/DO: Dr. Arce
Discharge Problem:
Symptomatic cholelithiasis
Prescriptions:
No Action
therapeutic multivitamin Tablet
1 tab PO DAILY
omega-3 fatty acids-fish oil 684-1,200 mg Capsule,Delayed Release(Dr/Ec)
1 cap PO DAILY
Vitamin
1 cap PO DAILY
Referrals:
Antonio Marcus MD [Family Provider] -
Interventions
Interventions:
*Risk Screen - Suicide Last Done: 05/16/24 18:41
*General Assessment Last Done: 05/16/24 18:41
*Neglect/Abuse Screening Last Done: 05/16/24 23:41
ED- Fall Risk Assessment Last Done: 05/16/24 23:40
*ED COVID-19 Vaccine History Last Done: 05/16/24 18:41
PA-Rqzgbc-Holufbqlrz Assessment Last Done: 05/16/24 23:40
Discharge Date and Time
Print Language: YEMENI
[2024-05-16 23:29] VITALS: BP 100/62
[2024-05-16] MEDS: NSS 1000 IV (23:29)
[2024-05-16] MEDS: ZOFRAN 4 MG IV (23:29)
[2024-05-16] MEDS: DILAUDID 1 MG IV (23:30)
[2024-05-16] MEDS: ZOSYN 50 IV (23:35)
[2024-05-17] VITALS (24 sets, daily range): BP systolic 94–149; BP diastolic 59–97; BMI 29.8
--- NOTE | 2024-05-17 01:14 | HPS.HSE ---
Addendum entered and electronically signed by Arya Kent MD 05/17/24 11:36:
I saw and examined the patient.
The School Social Worker's note was reviewed and I agree with the note.
Comment: feels better this morning but still sore. concerned about having more episodes in the future. mild ttp to ruq on exam. rpt US with stones but no stigmata of ACC. she would like to proceed with CCY today, she is added onto the schedule.
informed consent obtained.
Original Note:
Family Physician
-
Family Physician: Antonio Marcus
Chief Complaint
-
' Abdomen pain, nausea/vomiting'
History of Present Illness
38 year- old patient presents to ER with the c/o abdomen pain, nausea and vomiting. Patient was recently admitted on 04/26 and discharged home on 04/28 with the diagnosis of Choledocholithiasis with acute transaminitis with the plan of outpatient
treatment. Patient returns today as she developed severe pain at RUQ and shooting lower back pain acutely, along with nausea and vomiting that sustained throughout the evening unrelieved with Tums. Reports she had ongoing similar pain but was
controlled with diet and OTC medications like Tums. States she saw surgical team yesterday with the plans for continued outpatient management and eventual laparoscopic cholecystectomy, but pain was severe with persistent n/v therefore decided to
come to ER. Denies any chills, fever, chest pain, shortness of breath. no blood in stool or emesis. Last BM 05/15.
Medical History
Past Medical History
Past Medical History: Reports None
Past Surgical History: Reports (x3, recent one in December )
Social History
Tobacco: Non-smoker
Alcohol: None
Living: With Family
Family History
Family History: Not pertinent
Allergies / Home Medications
Allergies reflects when Allergies were last updated in [facility].
Home Medications with original date entered in [facility]
Allergy/Medication List:
Allergies
Allergy/AdvReac Type Severity Reaction Status Date / Time
No Known Allergies Allergy Verified 05/16/24 18:45
Home Medications
Vitamin 1 cap PO DAILY Supplement 04/26/24
omega-3 fatty acids-fish oil 684 mg-1,200 mg capsule,delayed release 1 cap PO DAILY Supplement 04/26/24
therapeutic multivitamin 1 tab PO DAILY Supplement 04/26/24
Review of Systems
-
History Source: Patient
A 12 point ROS was completed and negative except as noted: Yes
Constitutional: Reports No Symptoms
EENT: Reports No Symptoms
Respiratory: Reports No Symptoms
Cardiac: Reports No Symptoms
Abdomen/GI: Reports Abdominal Pain, Nausea and Vomiting
: Reports No Symptoms
Musculoskeletal: Reports No Symptoms
Skin: Reports No Symptoms
Neurological: Reports No Symptoms
Endocrine: Reports No Symptoms
Hematologic/Lymphatic: Reports No Symptoms
Psych: Reports No Symptoms
Physical Exam
Vital Signs
Vital Signs
Temp Pulse Resp BP Pulse Ox
97.8 F 65 18 100/63 96
05/16/24 18:41 05/16/24 23:40 05/16/24 18:41 05/17/24 00:00 05/17/24 00:30
Physical Exam
General: Well Developed and Well Nourished
HEENT: NormoCephalic, Moist mucous membranes and Atraumatic
Respiratory: Clear and Non Labored Respirations
Cardiac: S1/S2 and Regular Rhythm
Breast: Deferred by me
GI: Soft, Non Distended, Normal Bowel Sounds and Tender (RUQ)
Rectal: Deferred by Provider
Genito-urinary: No costovertebral tender
Musculoskeletal: No Clubbing and No Cyanosis
Skin: Warm and Dry
Neuro: Awake, Alert, AO x 3 and Nonfocal/grossly intact
Hematologic/Lymphatic: No Lymphadenopathy
Psych: Calm and Intact Judgment/Insight
Laboratory Results
-
Laboratory Results
Total Bilirubin 1.0 mg/dl (0.2-1.3) 05/16/24 19:05
AST 247 U/L (14-36) H 05/16/24 19:05
ALT 176 U/L (0-35) H 05/16/24 19:05
Alkaline Phosphatase 123 U/L (38-126) 05/16/24 19:05
Lipase 104 U/L (23-300) 05/16/24 19:05
Data Reviewed
-
Ultrasound: Image Personally Visualized and interpreted
MRI: Image Personally Visualized and interpreted
Lab Data: Labs Reviewed by me
Impression/Plan
-
38 y/o patient with abdomen pain, nausea and vomiting
# Abdomen pain likely due to symptomatic Cholelithiasis
04/26 Abdomen Xray: Cholelithiasis with a mildly prominent gallbladder. Negative sonographic Logan's sign which makes acute cholecystitis less likely.
The common bile duct is mildly enlarged measuring 7 mm. Recommend correlation with lab values for possible biliary obstruction.
Mild hepatic steatosis.
04/27 MRI Abdomen: There is no evidence of choledocholithiasis. The common bile duct has slightly decreased in size from prior ultrasound and now measures 5 mm, previously 7 mm. . Findings may represent recently passed stone
AST 247
ALT 176
Afebrile
Known to surgery team, no further test addressed.
-Continue IV Zosyn
- IV fluids
-Continue IV Dilaudid for abdomen pain
-Continue IV Zofran for nausea
-NPO
-Labs in AM
-Admit to Dr. Arce
Full Code
DVT prophylaxis: SCD's.
[2024-05-17] MEDS: FLUSH (NSS) 10 FLUSH IV (01:32)
[2024-05-17 04:39] LABS: Hematocrit 35.9 % (37.0-47.0); Hemoglobin 12.1 g/dL (12.0-16.0); Mean Corp Hgb Conc. 33.7 g/dL (33.0-37.0); Mean Corpuscular Hgb 29.2 pg (27.0-31.0); Mean Corpuscular Volume 86.7 fL (81.0-99.0); Platelet Count 188 10^3/uL (130-400); Red Blood Cell Count 4.14 10^6/uL (4.20-5.40); Red Cell Dist. Width 12.2 % (11.5-14.5); White Blood Cell Count 3.8 10^3/uL (4.8-10.8)
[2024-05-17 05:02] LABS: ALT (SGPT) 472 U/L (0-35); AST (SGOT) 489 U/L (14-36); Albumin 3.8 g/dl (3.5-5.0); Alkaline Phosphatase 110 U/L (38-126); Blood Urea Nitrogen 21 mg/dl (7-17); Calcium 8.7 mg/dl (8.4-10.2); Carbon Dioxide 26 mmol/L (22-30); Chloride 106 mmol/L (98-107); Glucose 98 mg/dl (70-99); Potassium 4.2 mmol/L (3.5-5.1); Sodium 141 mmol/L (135-145); Total Bilirubin 0.9 mg/dl (0.2-1.3); Total Protein 6.3 g/dl (6.3-8.2); eGFR > 60.00
[2024-05-17] MEDS: ZOSYN 50 IV ×4 (05:34→23:59)
[2024-05-17] MEDS: NSS 1000 IV ×2 (09:12→18:24)
[2024-05-17] MEDS: ZOFRAN 4 MG IV (14:02)
--- NOTE | 2024-05-17 14:46 | PTCARENOTE ---
report given to neighborhood coordinator. pt taking to or by pct w/ belongings.
--- NOTE | 2024-05-17 15:18 | LACTATION ---
visited [place] in ED. She has a pump and supplies. She has been pumping and dumping her breastmilk due to medications. I advised her that her medications (dilaudid, zosyn, and zofran) are considered compatible with . I provided the
write ups on each drug from [facility].
--- NOTE | 2024-05-17 16:45 | W.IMMPOSTOP ---
Surgical Immed Post Op Note
-
Primary Surgeon: Donte
Assisting: Caro CHIU
Pre-op Diagnosis: Biliary colic
Post-op Diagnosis: Same
Procedure Performed: Robot assisted laparoscopic cholecystectomy with cholangiogram
Anesthesia Type: GETA
Specimen / Cultures: Gallbladder
Estimated Blood Loss: 10cc
Complications: None immediate
Operative Findings: Softly distended non-inflamed gallbladder; cholangiogram catheter slipped out x2 while attempting cholangiogram, common duct visualized incompletely; plan for obs tonight
Mom and updated by phone all ?s answered
--- NOTE | 2024-05-17 16:47 | OR.RPT ---
Operative Report
Operative Report
Primary Surgeon: Donte
Assisting: Caro CHIU
Pre-op Diagnosis: Biliary colic
Post-op Diagnosis: Same
Procedure Performed: Robot assisted laparoscopic cholecystectomy with cholangiogram
Anesthesia Type: GETA
Specimen / Cultures: Gallbladder
Estimated Blood Loss: 10cc
Complications: None immediate
Operative Findings: Softly distended non-inflamed gallbladder; cholangiogram catheter slipped out x2 while attempting cholangiogram, main portion of common duct visualized without filling defects; plan for obs tonight
Date of Surgery:� 05/17/24
Indications: This 38F developed biliary colic. Laparoscopic cholecystectomy with robotic assist was elected.
Description of procedure: The patient was placed on the operating table in the supine position. General anesthesia was induced. A time-out was completed verifying correct patient, procedure, site, positioning, and special equipment prior to
beginning this procedure. An orogastric tube was placed. The abdomen was prepped and draped in the usual sterile fashion. A stab incision was made in left upper quadrant and the Veress needle was inserted. Proper position was confirmed by aspiration
and saline meniscus test. The abdomen was insufflated with carbon dioxide to a pressure of 12mmHg. The patient tolerated insufflation well.
A 8mm trocar was then inserted above the umbilicus. The laparoscope was inserted and the abdomen inspected. No injuries from initial trocar placement or Veress needle insertion were noted. Additional 8mm trocars were then inserted in the following
locations: two in the right lower quadrant and to the left of the umbilicus and just above. The abdomen was inspected and no abnormalities were found. The table was placed in the reverse Trendelenburg position with the right side up. The dome of the
gallbladder was grasped with an atraumatic grasper and retracted over the dome of the liver. Dense omental adhesions were carefully teased down with gently blunt sweeps and judicious hook cautery. The infundibulum was then grasped with an atraumatic
grasper and retracted toward the right lower quadrant. This maneuver exposed Calot�s triangle. The peritoneum overlying the gallbladder infundibulum was then incised and the cystic duct and cystic artery identified and circumferentially dissected so
that a clear view of the liver was achieved through a window between the cystic duct an cystic artery. At this time, the only two structures going into the gallbladder were the cystic artery and cystic duct.
A gaby was made in the cystic duct and a cholangiogram catheter was passed through the abdominal wall via a skin gaby and threaded into the cystic duct. Contrast flowed freely indicating a slipped catheter. The catheter was replaced and a second
attempt was made with partial visualization of the cystic duct and common duct without filling defects and more extravasation indicating a slipped catheter. At this point further attempts at cholangiogram were stopped.
The cystic duct was then doubly clipped and divided. The cystic artery was controlled with bipolar and divided. The gallbladder was then dissected from its peritoneal attachments by electrocautery. The posterior plane was fibrotic and the wall was
thickened. The gallbladder was also intrahepatic to a moderate degree. The gallbladder was removed using an endoscopic retrieval bag placed through the umbilical port. The gallbladder was passed off the table as a specimen. The gallbladder fossa was
closely inspected. There was no evidence of bleeding from the gallbladder fossa or cystic artery or leakage of the bile from the cystic duct stump. The umbilical trocar site was closed at the fascial level with 2-0 PDS. Secondary trocars were
removed under direct vision and noted to be hemostatic. The abdomen was allowed to collapse. The skin was closed with subcuticular sutures of 4-0 monocryl and topical skin adhesive. The orogastric tube was removed.
The patient tolerated the procedure well and was taken to the postanesthesia care unit in stable condition.
[2024-05-17] MEDS: DILAUDID 0.5 MG IV (18:24)
--- NOTE | 2024-05-17 18:43 | PTCARENOTE ---
received from PACU. drowsy, arousable. pain 7/10, c/o nausea. IV Dilaudid given for pain. IVF started with NSS @ 75 ml/hr. family at bedside. nutrition and fluids PO ordered and all needs anticipated at this time
--- NOTE | 2024-05-17 19:27 | PTCARENOTE ---
patient came to the floor post op c/o pain 11/07. I gave 0.5 Dilaudid IV which was a PACU dose. the patient did not want the higher dose of Narcotics (Dilaudid 1 mg) because she was already nauseous. House provider notified. new order for 0.5 mg IV
Dilaudid Q4H PRN placed and noted. explained to entertainment director RN in report
[2024-05-17] MEDS: ROXICODONE 5 MG PO (22:42)
[2024-05-17] MEDS: TYLENOL 1000 MG PO (22:42)
[2024-05-18 03:13] VITALS: BP 98/73
[2024-05-18] MEDS: ZOSYN 50 IV ×4 (05:31→23:48)
[2024-05-18] MEDS: DILAUDID 0.5 MG IV ×4 (06:10→23:50)
[2024-05-18 07:20] VITALS: BP 115/74
[2024-05-18 09:02] LABS: Hematocrit 36.1 % (37.0-47.0); Hemoglobin 12.1 g/dL (12.0-16.0); Mean Corp Hgb Conc. 33.5 g/dL (33.0-37.0); Mean Corpuscular Hgb 29.5 pg (27.0-31.0); Mean Platelet Volume 11.5 fL (7.4-10.4); Platelet Count 181 10^3/uL (130-400); Red Cell Dist. Width 12.2 % (11.5-14.5); White Blood Cell Count 4.6 10^3/uL (4.8-10.8)
[2024-05-18 09:28] LABS: Albumin 3.7 g/dl (3.5-5.0); Alkaline Phosphatase 229 U/L (38-126); Blood Urea Nitrogen 13 mg/dl (7-17); Calcium 8.6 mg/dl (8.4-10.2); Carbon Dioxide 26 mmol/L (22-30); Chloride 105 mmol/L (98-107); Estimated Creatinine Clearance 110 ml/min; Glucose 104 mg/dl (70-99); Potassium 3.9 mmol/L (3.5-5.1); Sodium 138 mmol/L (135-145); Total Protein 6.3 g/dl (6.3-8.2); eGFR > 60.00
[2024-05-18] MEDS: TYLENOL 1000 MG PO (09:38)
[2024-05-18] MEDS: NSS 1000 IV (09:39)
[2024-05-18 09:46] LABS: ALT (SGPT) 1576 U/L (0-35); AST (SGOT) 1079 U/L (14-36)
--- NOTE | 2024-05-18 09:48 | W.PN.GS2 ---
Today's Communication / Plan
-
`
Assessment / Plan
-
Assessment: 38-year-old female POD #1 status post RAL cholecystectomy with limited cholangiogram
AFVSS
Repeat LFTs this a.m. with elevation of bilirubin, AST ALT and alkaline phosphatase -possible postop reactive or possibly reflective of recurrent choledocholithiasis
Plan: Clears for comfort but not advancing diet
Analgesics and antiemetics as needed
Obtain postoperative MRCP to evaluate for possible choledocholithiasis
Possible GI consultation pending MRI results
Subjective Data
-
Date of Service: May 18, 2024
Patient seen and examined.
Tried liquids overnight and developed epigastric abdominal discomfort radiating into her back
Mild nausea
Appetite reduced
Postop incisional pain controlled
Objective Data
-
Intake and Output
05/17/24 05/18/24 05/19/24
06:59 06:59 06:59
Intake Total 2640 / 2640
Output Total 700 / 700
Balance 1940 / 1940
Intake:
Oral fluids 1440 / 1440
IV fluids (Total) 1100 / 1100
Normosol 200 / 200
IV piggybacks 100 / 100
Output:
Urine, Voided 700 / 700
Other:
Number of approximated MODERATE 1
amounts of urine
Vital Signs
Temp Pulse Resp BP Pulse Ox
97.8 F 52 14 115/74 97
05/18/24 07:20 05/18/24 07:20 05/18/24 07:20 05/18/24 07:20 05/18/24 07:20
Lab Results
05/18/24 08:37
05/18/24 08:37
Calcium 8.6 mg/dl (8.4-10.2) 05/18/24 08:37
Total Bilirubin 2.0 mg/dl (0.2-1.3) H D 05/18/24 08:37
AST 1079 U/L (14-36) H* 05/18/24 08:37
ALT 1576 U/L (0-35) H* 05/18/24 08:37
Alkaline Phosphatase 229 U/L (38-126) H 05/18/24 08:37
Total Protein 6.3 g/dl (6.3-8.2) 05/18/24 08:37
Albumin 3.7 g/dl (3.5-5.0) 05/18/24 08:37
Physical Exam
-
NAD AAOx3
ABD: Soft, nondistended, mild tenderness palpation at incision sites and epigastric region.
Incisions with glue dressing.
[2024-05-18 11:35] VITALS: BP 145/85
[2024-05-18] MEDS: ROXICODONE PO (12:09)
[2024-05-18] MEDS: DILAUDID 0.25 MG IV ×2 (12:17→15:18)
--- NOTE | 2024-05-18 12:56 | CM ---
Patient seen at beside. Patient states that she lives in a 2 story home with 2 babies at home. Patient for MRI today per patient. Patient PCP is from [facility] in [place]. CM will continue to follow for
discharge planning needs.
Plan; home with no needs.
[2024-05-18 15:15] VITALS: BP 149/93
[2024-05-18] MEDS: MYLICON 80 MG PO (20:22)
[2024-05-18 23:59] VITALS: BP 127/81
[2024-05-19] MEDS: NSS 1000 IV ×2 (02:33→16:25)
[2024-05-19] MEDS: DILAUDID 0.5 MG IV ×4 (03:00→19:49)
[2024-05-19] MEDS: ZOSYN 50 IV ×4 (05:47→23:51)
[2024-05-19 06:39] LABS: Hematocrit 33.4 % (37.0-47.0); Hemoglobin 11.1 g/dL (12.0-16.0); Mean Corp Hgb Conc. 33.2 g/dL (33.0-37.0); Mean Corpuscular Hgb 29.3 pg (27.0-31.0); Mean Corpuscular Volume 88.1 fL (81.0-99.0); Mean Platelet Volume 11.7 fL (7.4-10.4); Platelet Count 157 10^3/uL (130-400); Red Blood Cell Count 3.79 10^6/uL (4.20-5.40); Red Cell Dist. Width 12.2 % (11.5-14.5); White Blood Cell Count 4.9 10^3/uL (4.8-10.8)
[2024-05-19 07:04] LABS: AST (SGOT) 531 U/L (14-36); Albumin 3.5 g/dl (3.5-5.0); Alkaline Phosphatase 195 U/L (38-126); Blood Urea Nitrogen 8 mg/dl (7-17); Calcium 8.2 mg/dl (8.4-10.2); Carbon Dioxide 26 mmol/L (22-30); Chloride 104 mmol/L (98-107); Estimated Creatinine Clearance > 125 ml/min; Glucose 97 mg/dl (70-99); Potassium 3.8 mmol/L (3.5-5.1); Sodium 139 mmol/L (135-145); Total Bilirubin 1.1 mg/dl (0.2-1.3); Total Protein 5.9 g/dl (6.3-8.2); eGFR > 60.00
[2024-05-19 07:21] LABS: ALT (SGPT) 1267 U/L (0-35)
[2024-05-19 07:31] VITALS: BP 135/70
--- NOTE | 2024-05-19 08:54 | W.PN.GS2 ---
Addendum entered and electronically signed by Martinez Jerry MD 05/19/24 09:17:
Patient seen and examined with surgical RECYCLING OR RUBBISH COLLECTOR.
Patient reports intermittent abdominal pain. No nausea or vomiting
AFVSS
NAD AAOx3
Bilirubin improved and AST ALT a bit better as well.
MRCP confirms choledocholithiasis -nonobstructive as LFTs did improve a bit today
A/P: Choledocholithiasis identified on postoperative MRCP
GI consultation for ERCP stone extraction
Limit to clears until follow-up procedure
Continue Zosyn for biliary coverage
Original Note:
Today's Communication / Plan
-
GI consult, continue clears
Assessment / Plan
-
Assessment: 38-year-old female POD #2 status post RAL cholecystectomy with limited cholangiogram
AFVSS
Elevated bilirubin post op, returned to normal today. MRCP in follow up with choledocholithiasis present
Plan:
Clears for comfort but not advancing diet given MRCP findings
Analgesics and antiemetics as needed
GI consult for ERCP
SCD's while in bed
Subjective Data
-
Date of Service: May 19, 2024
Patient seen and examined at bedside with Dr. Jerry. Denies n/v. Pain to epigastric area/RUQ but manageable. Tolerating clears.
Objective Data
-
Intake and Output
05/18/24 05/19/24 05/20/24
06:59 06:59 06:59
Intake Total 2640 / 2640 4410 / 4410
Output Total 700 / 700 550 / 550
Balance 1940 / 1940 3860 / 3860
Intake:
Oral fluids 1440 / 1440 2560 / 2560
IV fluids (Total) 1100 / 1100 1650 / 1650
Normosol 200 / 200
IV piggybacks 100 / 100 200 / 200
Output:
Urine, Voided 700 / 700 550 / 550
Other:
Number of approximated MODERATE 1 3
amounts of urine
Vital Signs
Temp Pulse Resp BP Pulse Ox
97.9 F 76 16 135/70 96
05/19/24 07:31 05/19/24 07:31 05/19/24 07:31 05/19/24 07:31 05/19/24 07:31
Lab Results
05/19/24 04:05
05/19/24 04:05
Calcium 8.2 mg/dl (8.4-10.2) L 05/19/24 04:05
Total Bilirubin 1.1 mg/dl (0.2-1.3) 05/19/24 04:05
Direct Bilirubin 0.0 mg/dl (0.0-0.4) 05/19/24 04:05
AST 531 U/L (14-36) H* 05/19/24 04:05
ALT 1267 U/L (0-35) H* 05/19/24 04:05
Alkaline Phosphatase 195 U/L (38-126) H 05/19/24 04:05
Total Protein 5.9 g/dl (6.3-8.2) L 05/19/24 04:05
Albumin 3.5 g/dl (3.5-5.0) 05/19/24 04:05
Physical Exam
-
NAD AAOx3
ABD: Soft, nondistended, mild tenderness palpation at incision sites and epigastric region.
Incisions with glue dressing.
Patient has a irene catheter: No
Patient has a central line: No
--- NOTE | 2024-05-19 09:38 | CON.GI ---
Consultation
-
Date/Time Consultation Requested: 05/18/24 2:44pm
Date/Time Consultation Performed: 05/19/24 9:44am
Requesting Provider: Martinez Jerry
Performing Provider: Vick Garza
Reason for Consultation: CBD stone
Medical History
Chief Complaint / HPI
Chief Complaint: CBD stone
History of Present Illness:
38yo female post 4 months admitted 04/27 with abd pain, gallstones and elevated LFTs. MRCP negative for CBD stone. She had cholecystectomy 05/17 and IOC negative. Had pain post op and rise in LFTs so MRCP rechecked and positive for CBD stone
Past Medical History
Past Medical History: None
Past Surgical History:
Social History
Tobacco: Non-Smoker
Alcohol: None
Family History
Family History: Reviewed & Not Pertinent
Allergies / Home Medications
Allergy/AdvReac Type Severity Reaction Status Date / Time
No Known Allergies Allergy Verified 05/16/24 18:45
�Medication �Instructions �Recorded
No Meds [No Current Medications] 05/17/24
Review of Systems
-
All other systems: A 12 pt ROS was Negative except as stated above in HPI
Vital Signs
Temp Pulse Resp BP Pulse Ox
97.9 F 76 16 135/70 96
05/19/24 07:31 05/19/24 07:31 05/19/24 07:31 05/19/24 07:31 05/19/24 07:31
Physical Exam
Exam
General: Well Developed and Well Nourished
HEENT: Normocephalic
Respiratory: Non Labored Respirations
GI: Soft, Non Distended and Tender
Results
WBC 4.9 10^3/uL (4.8-10.8) 05/19/24 04:05
Hgb 11.1 g/dL (12.0-16.0) L 05/19/24 04:05
Hct 33.4 % (37.0-47.0) L 05/19/24 04:05
MCV 88.1 fL (81.0-99.0) 05/19/24 04:05
Plt Count 157 10^3/uL (130-400) 05/19/24 04:05
Absolute Neuts (auto) 5.8 10^3/uL (1.4-6.5) 05/16/24 19:04
Sodium 139 mmol/L (135-145) 05/19/24 04:05
Potassium 3.8 mmol/L (3.5-5.1) 05/19/24 04:05
Chloride 104 mmol/L (98-107) 05/19/24 04:05
Carbon Dioxide 26 mmol/L (22-30) 05/19/24 04:05
BUN 8 mg/dl (7-17) 05/19/24 04:05
Creatinine 0.7 mg/dL (0.6-1.0) 05/19/24 04:05
Calcium 8.2 mg/dl (8.4-10.2) L 05/19/24 04:05
Total Bilirubin 1.1 mg/dl (0.2-1.3) 05/19/24 04:05
AST 531 U/L (14-36) H* 05/19/24 04:05
ALT 1267 U/L (0-35) H* 05/19/24 04:05
Alkaline Phosphatase 195 U/L (38-126) H 05/19/24 04:05
Lipase 104 U/L (23-300) 05/16/24 19:05
Diagnostic Image Results:
Prior GI Procedures:
EGD:
Colonoscopy:
Assessment / Plan
-
Summary: 38yo female 4 months post presented with abd pain, gallstones, elevated LFTs 04/27. MRCP negative at that time. Had cholecystectomy 05/17. Post op had pain, elevated LFTs, MRCP now positive for CBD stone
05/18/24 MRCP- 2.5mm filling defect in CBD, mild CBD dilation 7mm.
Impression:
Choledocholithiasis. Peak TB 2.0, AST 1079, ALT 1576 on 05/18
s/p lap earnestine 05/17
Recommendations:
Plan ERCP tomorrow
NPO p MN
Abx
Trend LFTs
-
-
Thank you for consultation and allowing me to participate in the patient's care. Please call the health information technician GI physician during the after hours with any questions or concerns.
[2024-05-19 15:10] VITALS: BP 125/84
[2024-05-19 23:06] VITALS: BP 118/71
[2024-05-20] VITALS (13 sets, daily range): BP systolic 117–139; BP diastolic 77–87
[2024-05-20] MEDS: DILAUDID 0.5 MG IV ×3 (00:13→23:15)
[2024-05-20] MEDS: ZOSYN 50 IV ×4 (06:07→23:15)
[2024-05-20] MEDS: NSS 1000 IV (07:53)
[2024-05-20 08:20] LABS: Hematocrit 35.9 % (37.0-47.0); Hemoglobin 11.9 g/dL (12.0-16.0); Mean Corp Hgb Conc. 33.1 g/dL (33.0-37.0); Mean Corpuscular Hgb 29.2 pg (27.0-31.0); Mean Corpuscular Volume 88.2 fL (81.0-99.0); Platelet Count 158 10^3/uL (130-400); Red Blood Cell Count 4.07 10^6/uL (4.20-5.40); Red Cell Dist. Width 11.8 % (11.5-14.5); White Blood Cell Count 4.8 10^3/uL (4.8-10.8)
[2024-05-20 08:30] LABS: AST (SGOT) 154 U/L (14-36); Albumin 3.8 g/dl (3.5-5.0); Alkaline Phosphatase 193 U/L (38-126); Blood Urea Nitrogen 8 mg/dl (7-17); Calcium 9.1 mg/dl (8.4-10.2); Carbon Dioxide 27 mmol/L (22-30); Chloride 103 mmol/L (98-107); Estimated Creatinine Clearance > 125 ml/min; Glucose 89 mg/dl (70-99); Potassium 3.6 mmol/L (3.5-5.1); Sodium 138 mmol/L (135-145); Total Bilirubin 1.2 mg/dl (0.2-1.3); Total Protein 6.5 g/dl (6.3-8.2); eGFR > 60.00
[2024-05-20 08:52] LABS: ALT (SGPT) 808 U/L (0-35)
--- NOTE | 2024-05-20 10:03 | W.PN.GS2 ---
Today's Communication / Plan
-
ERCP
Assessment / Plan
-
Assessment: 38-year-old female (lactating) POD #3 status post RAL cholecystectomy with limited cholangiogram
AFVSS
Elevated bilirubin post op with MRCP in follow up demonstrating choledocholithiasis
Plan:
GI following with ERCP planned today
NPO for procedure then dietary advancement thereafter as per GI
Analgesics and antiemetics as needed
SCD's while in bed
Subjective Data
-
Date of Service: May 20, 2024
Patient seen and examined at bedside with Dr. Arce. No vomiting but has had intermittent nausea. Pain into mid back and ruq, manageable with current regimen.
Objective Data
-
Intake and Output
05/19/24 05/20/24 05/21/24
06:59 06:59 06:59
Intake Total 4410 / 4410 5350 / 5350
Output Total 550 / 550
Balance 3860 / 3860 5350 / 5350
Intake:
Oral fluids 2560 / 2560 3500 / 3500
IV fluids (Total) 1650 / 1650 1650 / 1650
IV piggybacks 200 / 200 200 / 200
Output:
Urine, Voided 550 / 550
Other:
Number of approximated SMALL 2
amounts of urine
Number of approximated MODERATE 3 1
amounts of urine
Number of approximated LARGE 3
amounts of urine
Vital Signs
Temp Pulse Resp BP Pulse Ox
97.8 F 87 16 139/87 97
05/20/24 07:13 05/20/24 07:13 05/20/24 07:13 05/20/24 07:13 05/20/24 07:13
Lab Results
05/20/24 08:06
05/20/24 08:06
Calcium 9.1 mg/dl (8.4-10.2) 05/20/24 08:06
Total Bilirubin 1.2 mg/dl (0.2-1.3) 05/20/24 08:06
Direct Bilirubin 0.0 mg/dl (0.0-0.4) 05/19/24 04:05
AST 154 U/L (14-36) H 05/20/24 08:06
ALT 808 U/L (0-35) H* 05/20/24 08:06
Alkaline Phosphatase 193 U/L (38-126) H 05/20/24 08:06
Total Protein 6.5 g/dl (6.3-8.2) 05/20/24 08:06
Albumin 3.8 g/dl (3.5-5.0) 05/20/24 08:06
Physical Exam
-
NAD AAOx3
ABD: Soft, nondistended, mild tenderness palpation at incision sites and epigastric region.
Incisions with glue dressing.
Patient has a irene catheter: No
Patient has a central line: No
[2024-05-20] MEDS: DILAUDID 0.25 MG IV (12:28)
--- NOTE | 2024-05-20 12:55 | CM ---
Chart reviewed and met with pt
For ERCP today
Antibiotics
CM will follow for d/c needs
Plan - anticipate home no needs
[2024-05-20] MEDS: ZOFRAN 4 MG IV (15:33)
[2024-05-20] MEDS: TYLENOL 1000 MG PO (17:37)
[2024-05-21] MEDS: MYLICON 80 MG PO ×2 (00:03→10:54)
[2024-05-21] MEDS: ROXICODONE 5 MG PO ×2 (01:25→05:46)
[2024-05-21] MEDS: NSS 1000 IV (01:27)
--- NOTE | 2024-05-21 04:04 | PTCARENOTE ---
received pt at change of shift reporting min/mod cramping RLQ, given Tylenol previous shift and was willing to wait to see if she would get relief, reported a feew hours later cramping pain worse and more frequent. Provided IV Dilaudid and Mylicon
but little relief provided. CLEANER TOUCH UP WORKER notified, assessed pt at bedside, informed contracting analyst GI MD. Provided po oxycodone per JUN and pt reported that pain lessen with medication. Pt is ambulating halls at this time. Pt has been urinating without difficulty
and reports passing flatus.
[2024-05-21] MEDS: ZOSYN 50 IV ×3 (05:46→17:28)
[2024-05-21 07:22] LABS: Hematocrit 35.9 % (37.0-47.0); Hemoglobin 12.3 g/dL (12.0-16.0); Mean Corp Hgb Conc. 34.3 g/dL (33.0-37.0); Mean Corpuscular Hgb 28.9 pg (27.0-31.0); Mean Corpuscular Volume 84.5 fL (81.0-99.0); Mean Platelet Volume 11.2 fL (7.4-10.4); Platelet Count 222 10^3/uL (130-400); Red Blood Cell Count 4.25 10^6/uL (4.20-5.40); Red Cell Dist. Width 11.6 % (11.5-14.5); White Blood Cell Count 6.3 10^3/uL (4.8-10.8)
[2024-05-21 07:27] VITALS: BP 109/62
[2024-05-21 07:37] LABS: ALT (SGPT) 608 U/L (0-35); AST (SGOT) 77 U/L (14-36); Albumin 3.8 g/dl (3.5-5.0); Alkaline Phosphatase 182 U/L (38-126); Blood Urea Nitrogen 9 mg/dl (7-17); Calcium 9.2 mg/dl (8.4-10.2); Carbon Dioxide 22 mmol/L (22-30); Chloride 103 mmol/L (98-107); Estimated Creatinine Clearance > 125 ml/min; Glucose 92 mg/dl (70-99); Potassium 4.1 mmol/L (3.5-5.1); Sodium 136 mmol/L (135-145); Total Bilirubin 0.6 mg/dl (0.2-1.3); Total Protein 6.5 g/dl (6.3-8.2); eGFR > 60.00
--- NOTE | 2024-05-21 09:07 | W.PN.GS2 ---
Addendum entered and electronically signed by Aaron Camacho MD 05/21/24 17:44:
Patient has tolerated diet, up and walking around the halls, pain has significantly improved. Okay for discharge.
Original Note:
Today's Communication / Plan
-
-- Fulls, ADAT to LFD
-- Pain control: Tylenol, Toradol, Oxycodone
-- HLIV
-- Pre-liz vitamin
-- Possible DC this afternoon if doing well
Assessment / Plan
-
Assessment: 38-year-old female (lactating) POD#4 status post RAL cholecystectomy with limited cholangiogram
AFVSS
Elevated bilirubin post op with MRCP in follow up demonstrating choledocholithiasis
PPD#1 s/p ERCP with sphincterotomy and plastic stent placement
Labs trending down, WBC normal
Recovering well overall. Mild nausea likely combination of anesthesia intraluminal stay. Plan for full liquids, if tolerates can advance to low-fat diet, if tolerates okay for discharge. Crampy abdominal pain likely related to gas insufflation,
passing flatus, lipase added by GI.
Plan:
-- Fulls, ADAT to LFD
-- Pain control: Tylenol, Toradol, Oxycodone
-- HLIV
-- Pre-liz vitamin
-- Possible DC this afternoon if doing well
Subjective Data
-
Date of Service: May 21, 2024
Mild nausea and emesis overnight. Crampy lower abdominal pain. Passing flatus and had a BM prior to her ERCP. No fevers or chills. Pain overall well-controlled. Ambulating.
Objective Data
-
Intake and Output
05/20/24 05/21/24 05/22/24
06:59 06:59 06:59
Intake Total 5350 / 5350 935 / 935
Balance 5350 / 5350 935 / 935
Intake:
Oral fluids 3500 / 3500 360 / 360
IV fluids (Total) 1650 / 1650 525 / 525
IV piggybacks 200 / 200 50 / 50
Other:
Number of approximated SMALL 2
amounts of urine
Number of approximated MODERATE 1 8 3
amounts of urine
Number of approximated LARGE 3
amounts of urine
Vital Signs
Temp Pulse Resp BP Pulse Ox
98.5 F 61 17 109/62 96
05/21/24 07:27 05/21/24 07:27 05/21/24 07:27 05/21/24 07:27 05/21/24 07:27
Lab Results
05/21/24 04:53
05/21/24 04:53
Calcium 9.2 mg/dl (8.4-10.2) 05/21/24 04:53
Total Bilirubin 0.6 mg/dl (0.2-1.3) 05/21/24 04:53
Direct Bilirubin 0.0 mg/dl (0.0-0.4) 05/19/24 04:05
AST 77 U/L (14-36) H 05/21/24 04:53
ALT 608 U/L (0-35) H* 05/21/24 04:53
Alkaline Phosphatase 182 U/L (38-126) H 05/21/24 04:53
Total Protein 6.5 g/dl (6.3-8.2) 05/21/24 04:53
Albumin 3.8 g/dl (3.5-5.0) 05/21/24 04:53
Physical Exam
-
Gen: NAD
Abd: soft, mild tenderness, ND, non-peritoneal, incisions c/d/i - no erythema or drainage, mild ecchymosis at central incision
Patient has a irene catheter: No
Patient has a central line: No
[2024-05-21 10:27] LABS: Lipase 1032 U/L (23-300)
[2024-05-21] MEDS: PRENATAL PLUS 1 TABLET PO (10:52)
[2024-05-21] MEDS: TORADOL 15 MG IV (10:58)
--- NOTE | 2024-05-21 11:36 | W.PN.GI.CBS2 ---
Today's Communication / Plan
-
Liquid diet today
Continue follow-up with surgery recommendation
Assessment / Plan
-
Summary: 38yo female 4 months post presented with abd pain, gallstones, elevated LFTs 04/27. MRCP negative at that time. Had cholecystectomy 05/17. Post op had pain, elevated LFTs, MRCP now positive for CBD stone
05/18/24 MRCP- 2.5mm filling defect in CBD, mild CBD dilation 7mm.
Impression:
s/p lap earnestine 05/17
Choledocholithiasis. s/p ERCP 05/20/2024 Dr. Dykes.
Impression: - The major papilla appeared normal.
- The common bile duct was mildly dilated.
- A pancreatic sphincterotomy was performed.
- One plastic stent was placed into the ventral
pancreatic duct.
- A biliary sphincterotomy was performed.
- The biliary tree was swept and small amount of
sludge was found, however no stone was found/extracted.
Recommendations:
Although patient was complaining of some nausea/emesis last night with lower abdominal cramps. She is feeling well this morning without any symptoms. Her abdominal examination no tenderness elicited. Labs this a.m. showing downtrending LFTs.
Lipase noted to be 1032-likely component of post ERCP pancreatitis with PD cannulation s/p PD stent .
Patient is willing to try liquid diet today. if pain recurs/worsening symptoms will recommend n.p.o. and cross-sectional imaging.
Abdominal x-ray in 2 weeks to confirm migration of PD stent
Follow-up with Dr. Dykes as outpatient
Total Time Spent with Patient (in minutes): 35
Subjective
Subjective
Date of Service: May 21, 2024
S/p ERCP yesterday with Dr. Dykes. Patient had lower abdominal cramps this a.m. With mild nausea and emesis overnight. Currently denies any abdominal pain. Passing flatus. No fever or chills
Objective
Data Reviewed
Laboratory Data:
Laboratory Results
05/21/24 04:53
05/21/24 04:53
Laboratory Results
Total Bilirubin 0.6 mg/dl (0.2-1.3) 05/21/24 04:53
AST 77 U/L (14-36) H 05/21/24 04:53
ALT 608 U/L (0-35) H* 05/21/24 04:53
Alkaline Phosphatase 182 U/L (38-126) H 05/21/24 04:53
Lipase 1032 U/L (23-300) H* 05/21/24 04:53
Vital Signs and I&O:
Vital Signs
Temp Pulse Resp BP Pulse Ox
98.5 F 61 17 109/62 96
05/21/24 07:27 05/21/24 07:27 05/21/24 07:27 05/21/24 07:27 05/21/24 07:27
I&O
05/20/24 05/21/24 05/22/24
06:59 06:59 06:59
Intake Total 5350 / 5350 935 / 935
Balance 5350 / 5350 935 / 935
Physical Exam
Physical Exam
GI: Soft, Non Distended and Non Tender
--- NOTE | 2024-05-21 11:50 | CM ---
Chart reviewed - met with pt at bedside
Poss d/c later today if tolerating solids
Has ride at discharge
Plan -anticipate home no needs when medically ready for discharge
[2024-05-21 15:18] VITALS: BP 109/69
== END 2024-05-21 18:30 | disposition home or self-care (01) | DRG 419 ==
LOC: 2 SOUTH 23:47
PROVIDERS: Emergency Medicine; Internal Medicine Gastroenterology; Nurse Practitioner Gerontology; Registered Nurse; Surgery; ADMITTING PHYSICIAN Surgery; CONSULT PHYSICIAN Specialist; EMERGENCY PHYSICIAN Emergency Medicine; FAMILY PHYSICIAN Family Medicine
PROC: 0FT44ZZ Resection of Gallbladder, Percutaneous Endoscopic Approach (ICD-10-PCS; 2024-05-17)
PROC: BF5C2Z0 Other Imaging of Hepatobiliary System, All using Fluorescing Agent, Intraoperative (ICD-10-PCS; 2024-05-17)
PROC: 0F7D8DZ Dilation of Pancreatic Duct with Intraluminal Device, Via Natural or Artificial Opening Endoscopic (ICD-10-PCS; 2024-05-20)
PROC: 0F798DZ Dilation of Common Bile Duct with Intraluminal Device, Via Natural or Artificial Opening Endoscopic (ICD-10-PCS; 2024-05-20)
PROC: 0FCD8ZZ Extirpation of Matter from Pancreatic Duct, Via Natural or Artificial Opening Endoscopic (ICD-10-PCS; 2024-05-20)
DX: K80.70 Calculus of gallbladder and bile duct without cholecystitis without obstruction (principal); Z90.49 Acquired absence of other specified parts of digestive tract
CPT/HCPCS: 88304; 74181; 74300; 74330; 76000; 76705; 80053; 81003; 81015; 82248; 83690; 84703; 85025; 85027; 96365; 96375; 99285; C1769; C2617

== ENCOUNTER → 2024-06-13 12:12 | Outpatient (REF) | payer BC, SELFPAY | LOC: RAD 12:12 | PROVIDERS: ATTENDING PHYSICIAN Internal Medicine Gastroenterology; FAMILY PHYSICIAN Family Medicine | DX: Z96.89 Presence of other specified functional implants (principal) | CPT/HCPCS: 74018 ==